=== PATIENT | male | born 1990 | race Caucasian/White ===

== ENCOUNTER 2016-07-18 17:41 | Emergency (ER) | payer MEDICAID ==
[2016-07-18] MEDS ORDERED: SULFAMETH/TRIMETH DS 800/160 MG TABLET PO STA (19:12)
[2016-07-18] MEDS ORDERED: CEPHALEXIN 250 MG CAPSULE PO STA (19:12)
[2016-07-18] MEDS ORDERED: CEPHALEXIN 250 MG CAPSULE PO ONE (19:15)
[2016-07-18] MEDS ORDERED: SULFAMETH/TRIMETH DS 800/160 MG TABLET PO ONE (19:16)
== END 2016-07-18 19:29 | disposition home or self-care (01) ==
DX: L03.811 Cellulitis of head [any part, except face] (principal); F17.200 Nicotine dependence, unspecified, uncomplicated
CPT/HCPCS: 99283; A9270

== ENCOUNTER 2016-10-06 16:07 | Emergency (ER) | payer OTHER, MEDICAID ==
--- NOTE | 2016-10-06 17:42 | XRAY Preliminary Report ---
Exam: XR Toe(s) RT IMPRESSION: 1. No evidence of fracture. 2. Relative diastases at the first interphalangeal joint on lateral view is probably artifact seconda ry to projection. Dislocation from reported mechanism would be atypical. [facility] SITE ID: [id number]
--- NOTE | 2016-10-06 17:44 | XRAY Report ---
EXAM: RIGHT TOE RADIOGRAPHY EXAM DATE: 10/06/2016 05:04 PM. CLINICAL HISTORY: Dropped a heavy pot on them. COMPARISON: None. TECHNIQUE: 3 views. FINDINGS: Bones: No fracture or focal bony lesion. Joints: There is relative diastases of the first interphalangeal joint on lateral view. This is proba henry artifact secondary to projection. Dislocation from reported mechanism would be atypical. Soft Tissues: No unexpected soft tissue findings. IMPRESSION: 1. No evidence of fracture. 2. Relative diastases at the first interphalangeal joint on lateral view is probably artifact seconda ry to projection. Dislocation from reported mechanism would be atypical. [facility] Referring Provider Line: [phone] SITE ID: [id number]
--- NOTE | 2016-10-06 18:08 | ED Physician Documentation ---
PD HPI LOWER EXT INJURY - Stated complaint Stated Complaint: TOE INJ - Chief complaint Chief Complaint: Ext Problem - History obtained from History obtained from: Patient - History of Present Illness PD HPI LOW EXT INJURY LOCATION: Right, Toe Type of injury: Blunt / blow Where injury occurred: Work Timing - onset: Today Timing - duration: Hours Timing - details: Abrupt onset, Still present Improved by: Rest, Immobilization Worsened by: Moving, Palpating Associated symptoms: Discolored. No: Weakness, Numbness, Tingling Contributing factors: No: Anticoagulated Similar symptoms before: Has not had sx before Recently seen: Not recently seen - Additional information Additional information: 26 y/o male dropped a heavy pot on his right foot injuring his toes on the right foot. The pot struck the tips of #1,2 and 3 on the right. He is able to ambulate. Review of Systems Constitutional: denies: Fever Throat: denies: Sore throat Respiratory: denies: Cough GI: denies: Vomiting Musculoskeletal: reports: Extremity pain, Pain with weight bearing. denies: Neck pain, Back pain Neurologic: denies: Generalized weakness, Focal weakness, Numbness PD PAST MEDICAL HISTORY - Past Medical History Cardiovascular: None Respiratory: Sleep apnea Neuro: None Endocrine/Autoimmune: None GI: None : None HEENT: None Psych: Bipolar disorder Musculoskeletal: None Derm: None - Past Surgical History Past Surgical History: Yes HEENT: Myringotomy (tubes) - Present Medications Home Medications: Ambulatory Orders Medication Instructions Recorded Confirmed risperiDONE [RisperDAL] 1 mg PO DAILY 01/08/15 10/06/16 - Allergies Allergies/Adverse Reactions: Allergies Allergy/AdvReac Type Severity Reaction Status Date / Time No Known Drug Allergies Allergy Verified 10/06/16 16:15 - Social History Does the pt smoke?: Yes Smoking Status: Current every day smoker Does the pt drink ETOH?: No Does the pt have substance abuse?: Yes Substance Use and Type: Marijuana - Immunizations Immunizations are current?: Yes - POLST Patient has POLST: No PD ED PE NORMAL - Vitals Vital signs reviewed: Yes (hypertensive) - General General: Alert and oriented X 3, No acute distress, Well developed/nourished - HEENT HEENT: Atraumatic - Respiratory Respiratory: No respiratory distress - Derm Derm: Normal color, Warm and dry, No rash - Extremities Extremities: No deformity, No edema, Other (There is point tenderness and bruising to the tips of the toes on the right foot limited to #1,2 &3) - Neuro Neuro: Alert and oriented X 3, No motor deficit, No sensory deficit, Normal speech - Psych Psych: Normal mood, Normal affect Results - Vitals Vitals: Vital Signs - 24 hr 10/06/16 16:12 Temperature 36.6 C Heart Rate 94 Respiratory 20 Rate Blood Pressure 139/84 H O2 Saturation 98 Oxygen O2 Source Room air - Rads (name of study) toes right. Radiology: Prelim report reviewed, EMP read indepedently, See rad report PD MEDICAL DECISION MAKING - ED course Complexity details: considered differential, d/w patient ED course: Toe contusions on the right foot. The patient is able to ambulate and a metatarsal bar made of cast padding is applied to the patient's slipper. Departure - Departure Disposition: 01 Home, Self Care Clinical Impression: Contusion, toes Qualifiers: Encounter type: initial encounter Toe: great toe Damage to nail status: without damage Laterality: right Qualified Code(s): S90.111A - Contusion of right great toe without damage to nail, initial encounter Condition: Stable Instructions: ED Crush Injury Toe No Fx Follow-Up: Christiano Aranda MD [Primary Care Provider] -
[2016-10-06 18:34] VITALS: BP 136/82
== END 2016-10-06 18:32 | disposition home or self-care (01) ==
LOC: ED 16:07
DX: S90.111A Contusion of right great toe without damage to nail, initial encounter (principal); F17.200 Nicotine dependence, unspecified, uncomplicated
CPT/HCPCS: 1040M; 73660; 99283

== ENCOUNTER 2017-04-05 05:49 | Emergency (ER) | payer MEDICAID ==
--- NOTE | 2017-04-05 06:35 | ED Physician Documentation ---
PD HPI CHEST PAIN - Stated complaint Stated Complaint: CHEST PAIN - Chief complaint Chief Complaint: Cardiac - History obtained from History obtained from: Patient - History of Present Illness Timing - onset: Today Timing - onset during: Rest Timing - details: Abrupt onset, Now resolved Quality: Sharp Location: Left chest Worsened by: No: Exertion, Inspiration Associated symptoms: Diaphoresis, Feeling faint / dizzy. No: Shortness of air, Nausea Similar symptoms before: Has not had sx before Recently seen: Not recently seen - Additional information Additional information: Patient is a 26 year old obese male with no other past medical history who is presenting to the emergency department for chest pain. Patient states that he developed some sharp chest pain this morning, with slight diaphoresis. Patient states that it lasted a few seconds and went away. Upon initial evaluation in the emergency department patient was chest pain free and denied any complaints. patient stated that he just wanted to be sure. Review of Systems Constitutional: denies: Fever, Chills Eyes: denies: Decreased vision, Photophobia Ears: denies: Ear pain, Drainage/discharge Nose: denies: Rhinorrhea / runny nose, Congestion Throat: reports: Reviewed and negative Cardiac: reports: Chest pain / pressure. denies: Palpitations, Pedal edema Respiratory: denies: Dyspnea, Cough, Wheezing GI: reports: Nausea. denies: Vomiting, Constipation, Diarrhea : reports: Reviewed and negative Skin: reports: Reviewed and negative Musculoskeletal: denies: Neck pain, Back pain Neurologic: reports: Reviewed and negative Immunocompromised: denies: Immunocompromised PD PAST MEDICAL HISTORY - Past Medical History Cardiovascular: None Respiratory: Sleep apnea Neuro: None Endocrine/Autoimmune: None GI: None : None HEENT: None Psych: Bipolar disorder Musculoskeletal: None Derm: None - Past Surgical History Past Surgical History: Yes HEENT: Tonsil/Adenoidectomy - Present Medications Home Medications: Ambulatory Orders Medication Instructions Recorded Confirmed risperiDONE [RisperDAL] 1 mg PO DAILY 01/08/15 04/05/17 - Allergies Allergies/Adverse Reactions: Allergies Allergy/AdvReac Type Severity Reaction Status Date / Time No Known Drug Allergies Allergy Verified 10/06/16 16:15 - Social History Does the pt smoke?: Yes Smoking Status: Current every day smoker Does the pt drink ETOH?: No Does the pt have substance abuse?: Yes - Immunizations Immunizations are current?: Yes - POLST Patient has POLST: No PD ED PE NORMAL - Vitals Vital signs reviewed: Yes - General General: Alert and oriented X 3, No acute distress, Well developed/nourished - HEENT HEENT: Atraumatic, PERRL, Moist mucous membranes, Pharynx benign - Neck Neck: Supple, no meningeal sign, No JVD - Cardiac Cardiac: RRR, No murmur, No rub - Respiratory Respiratory: No respiratory distress, Clear bilaterally - Abdomen Abdomen: Soft, Non tender, Non distended - Derm Derm: Normal color, Warm and dry, No rash - Extremities Extremities: No deformity, No edema, No calf tenderness / cord - Neuro Neuro: Alert and oriented X 3, No motor deficit, No sensory deficit, Normal speech - Psych Psych: Normal mood Results - Vitals Vitals: Vital Signs - 24 hr 04/05/17 04/05/17 04/05/17 05:53 07:11 07:13 Temperature 36.8 C 36.5 C Heart Rate 97 83 Respiratory 16 20 Rate Blood Pressure 150/82 H 128/63 O2 Saturation 97 98 Oxygen O2 Source Room air - EKG (time done) 0558 Rate: Rate (enter#) (92) Rhythm: NSR [place]: Normal Intervals: Normal NM QRS: Normal Ischemia: Normal ST segments Compare to prior EKG: Old EKG unavailable - Labs Labs: Laboratory Tests 04/05/17 06:05 Troponin I < 0.04 - Rads (name of study) chest x-ray Radiology: Final report received (no acute abnormality) PD MEDICAL DECISION MAKING - ED course Complexity details: reviewed old records, reviewed results, re-evaluated patient , considered differential, d/w patient ED course: Patient was seen and examined at bedside. EKG was performed and was within normal limits. Patient's diagnostics were all within normal limits. Patient had negative PERC and HEART scores and was appropriate for discharge with outpatient follow up up. Departure - Departure Disposition: 01 Home, Self Care Clinical Impression: Atypical chest pain Condition: Good Instructions: ED Chest Pain NonCardiac Follow-Up: Dylan Lagos PA-C [Primary Care Provider] - Within 3 Days Comments: Your diagnostics today were within normal limits. there are no acute abnormalities indicating that your chest pain is unlikely cardiac in nature. That being said it is important that you follow up with your primary care provider for further evaluation and care. You may return to the emergency department at any time for new, worsening or uncontrollable symptoms. Discharge Date/Time: 04/05/17 07:13
--- NOTE | 2017-04-05 07:02 | XRAY Preliminary Report ---
Exam: XR CHEST 1 VIEW IMPRESSION: Normal single view chest. [facility] SITE ID: [id number]
--- NOTE | 2017-04-05 07:04 | XRAY Report ---
EXAM: CHEST RADIOGRAPHY EXAM DATE: 04/05/2017 06:47 AM. CLINICAL HISTORY: Chest pain. COMPARISON: None. TECHNIQUE: 1 view. FINDINGS: Lungs/Pleura: No focal opacities evident. No pleural effusion. No pneumothorax. Mediastinum: Within exam limitations, the cardiomediastinal contour is normal. Other: None. IMPRESSION: Normal single view chest. [facility] Referring Provider Line: [phone] SITE ID: [id number]
[2017-04-05 07:12] VITALS: BP 128/63
== END 2017-04-05 07:13 | disposition home or self-care (01) ==
LOC: ED 05:49
DX: R07.89 Other chest pain (principal); F17.200 Nicotine dependence, unspecified, uncomplicated
CPT/HCPCS: 36415; 71010; 84484; 93005; 99283

== ENCOUNTER 2017-08-07 08:29 | Emergency (ER) | payer MEDICAID ==
[2017-08-07] MEDS ORDERED: SODIUM CHLORIDE 0.9% 1,000 ML IV ONE (08:41)
[2017-08-07] MEDS ORDERED: HALOPERIDOL 5 MG/ML VIAL IVP STA (08:51)
[2017-08-07] MEDS ORDERED: diphenhydrAMINE INJ 50 MG/ML VIAL IVP STA (08:51)
--- NOTE | 2017-08-07 08:55 | ED Physician Documentation ---
History of Present Illness - Stated complaint Stated Complaint: VOMTING - Chief complaint Chief Complaint: Abd Pain - Additonal information Additional information: hx from pt 27 male hx cannabis hyperemsis stopped smoking THC for 6 m and was doing well started again and now cannot stop vomiting sx for several days abd cramping and intractable vomiting no diarrhea denies travel bad food etc alos states [place] dced his psych meds a m ago but feel unlikely hat withdrawal sx would present at this pt in time Review of Systems Constitutional: denies: Fever, Chills Cardiac: denies: Chest pain / pressure Respiratory: denies: Dyspnea GI: reports: Abdominal Pain, Nausea, Vomiting. denies: Diarrhea Endocrine: denies: Easy bruising / bleeding Immunocompromised: denies: Immunocompromised PD PAST MEDICAL HISTORY - Past Medical History Cardiovascular: None Respiratory: Sleep apnea Neuro: None Endocrine/Autoimmune: None GI: None : None HEENT: None Psych: Bipolar disorder Musculoskeletal: None Derm: None - Past Surgical History Past Surgical History: Yes HEENT: Tonsil/Adenoidectomy - Allergies Allergies/Adverse Reactions: Allergies Allergy/AdvReac Type Severity Reaction Status Date / Time No Known Drug Allergies Allergy Verified 08/07/17 08:36 - Social History Does the pt smoke?: No Smoking Status: Never smoker Does the pt drink ETOH?: Yes Does the pt have substance abuse?: Yes Substance Use and Type: Marijuana - Immunizations Immunizations are current?: Yes - POLST Patient has POLST: No PD ED PE NORMAL - Vitals Vital signs reviewed: Yes - General General: Alert and oriented X 3, Other - Neck Neck: Supple, no meningeal sign - Cardiac Cardiac: RRR - Respiratory Respiratory: No respiratory distress, Clear bilaterally - Abdomen Abdomen: Other (has crampy pain and mild upper abd TTP non focal and no rebound or gaurding) - Derm Derm: Normal color - Neuro Neuro: Alert and oriented X 3 Results - Vitals Vitals: Vital Signs - 24 hr 08/07/17 08/07/17 08:34 12:15 Temperature 36.3 C L 36.7 C Heart Rate 84 87 Respiratory 16 15 Rate Blood Pressure 142/96 H 164/89 H O2 Saturation 95 98 Oxygen O2 Source Room air - Labs Labs: Laboratory Tests 08/07/17 08/07/17 08:53 08:53 WBC 10.8 RBC 5.50 Hgb 15.5 Hct 44.7 MCV 81.3 MCH 28.2 MCHC 34.7 RDW 14.9 Plt Count 314 MPV 7.7 Neut # 6.6 Lymph # 3.4 [place] # 0.8 Eos # 0.0 Baso # 0.0 Absolute Nucleated RBC 0.00 Nucleated RBC % 0.0 Sodium 135 Potassium 3.4 L Chloride 100 L Carbon Dioxide 22 Anion Gap 13.0 BUN 22 H Creatinine 1.3 H Estimated GFR (MDRD) 67 L Glucose 129 H Calcium 9.9 Total Bilirubin 1.7 H AST 35 ALT 43 Alkaline Phosphatase 32 L Total Protein 9.2 H Albumin 5.1 Globulin 4.1 Albumin/Globulin Ratio 1.2 Lipase 12 L - Rads (name of study) RUQ sono Radiology: See rad report (no gallstones - hepatic steatosis) PD MEDICAL DECISION MAKING - ED course ED course: sx resolved with haldol ruq sono 2/2 elev bili ready for dc Departure - Departure Disposition: 01 Home, Self Care Clinical Impression: Cyclic vomiting syndrome Qualifiers: Vomiting Intractability: non-intractable Nausea presence: with nausea Qualified Code(s): G43.A0 - Cyclical vomiting, not intractable Condition: Good Comments: The cyclic vomiting is triggered by marijuana - you have already stopped use which is great - sometimes it takes a month or two for the vomiting cycles to stop. If delarosa have another episode and need to come back to the ER, the medication we gave you in the ER that helped today was called haldol One of your liver tests was slightly elevated so we got an ultrasound - the gallbladder was fine - no gallstones. But the ultrasound showed that you do have some fatty liver changes - this is often due to alcohol consumption so if you drink please cut down. Nothing needs to be done about this finding right now but you should follow up with your PMD and have further monitoring to make sure this does not progress to more severe liver disease such as cirrhosis Rest and drink plenty of fluids for the rest of the day Forms: Activity restrictions
[2017-08-07 09:02] LABS: BASOPHILS % (AUTO) 0.4 %; EOSINOPHILS % (AUTO) 0.3 %; HGB - HEMOGLOBIN 15.5 g/dL (14.0-18.0); LYMPHOCYTES # (AUTO) 3.4 10^3/uL (1.5-3.5); LYMPHOCYTES % (AUTO) 31.2 %; MEAN CORPUSCULAR HEMOGLOBIN 28.2 pg (27.0-31.0); MEAN CORPUSCULAR HGB CONC 34.7 g/dL (32.0-36.0); MEAN CORPUSCULAR VOLUME 81.3 fL (80.0-94.0); MEAN PLATELET VOLUME 7.7 fL (7.4-11.4); MONOCYTES # (AUTO) 0.8 10^3/uL (0.0-1.0); MONOCYTES % (AUTO) 7.3 %; NEUTROPHILS # (AUTO) 6.6 10^3/uL (1.5-6.6); NEUTROPHILS % (AUTO) 60.8 %; PLT - PLATELET COUNT 314 10^3/uL (130-450); RED CELL DISTRIBUTION WIDTH 14.9 % (12.0-15.0); WHITE BLOOD COUNT 10.8 x10^3/uL (4.8-10.8)
[2017-08-07 09:14] LABS: ALBUMIN 5.1 g/dL (3.2-5.5); ALBUMIN/GLOBULIN RATIO 1.2 (1.0-2.2); BILIRUBIN,TOTAL 1.7 mg/dL (0.2-1.0); CALCIUM 9.9 mg/dL (8.5-10.3); CREATININE 1.3 mg/dL (0.6-1.2); TOTAL PROTEIN 9.2 g/dL (6.7-8.2)
--- NOTE | 2017-08-07 11:29 | Ultrasound Report ---
EXAM: ABDOMEN ULTRASOUND LIMITED, RUQ EXAM DATE: 08/07/2017 11:14 AM. CLINICAL HISTORY: Abd pain vomiting elev bili. COMPARISON: 03/27/2014. TECHNIQUE: Real-time scanning was performed with static images obtained. FINDINGS: Liver: Overall increased echogenicity with no discrete mass identified. 23.3 cm. Main portal vein mateus w: Hepatopetal. Gallbladder: No stones, wall thickening, or sonographic De La Torre's sign. Biliary System: CBD measures 4.6 mm. No intrahepatic or extrahepatic ductal dilatation. Other: Right kidney appears unremarkable with no hydronephrosis. Sagittal length 11.4 cm. IMPRESSION: 1. No cholelithiasis or biliary ductal dilation. 2. Overall enlarged and echogenic appearance of the liver, suggesting hepatic steatosis. [facility] Referring Provider Line: [phone] SITE ID: [id number]
[2017-08-07 12:16] VITALS: BP 164/89
== END 2017-08-07 12:28 | disposition home or self-care (01) ==
LOC: ED 08:29
DX: G43.A0 Cyclical vomiting, in migraine, not intractable (principal)
CPT/HCPCS: 36415; 76705; 80053; 83690; 85025; 96361; 96374; 96375; 99283; 99284; J1200

== ENCOUNTER 2017-10-27 19:13 | Emergency (ER) | payer MEDICAID | END 2017-10-27 19:32 | disposition left against medical advice (07) | LOC: ED 19:13 | DX: Z53.21 Procedure and treatment not carried out due to patient leaving prior to being seen by health care provider (principal) ==

== ENCOUNTER 2017-11-15 09:20 | Emergency (ER) | payer MEDICAID ==
[2017-11-15] MEDS ORDERED: SODIUM CHLORIDE 0.9% 1,000 ML IV ONE ×2 (09:54→11:17)
[2017-11-15 10:01] LABS: BASOPHILS % (AUTO) 0.1 %; EOSINOPHILS % (AUTO) 0.1 %; HGB - HEMOGLOBIN 15.9 g/dL (14.0-18.0); LYMPHOCYTES # (AUTO) 3.1 10^3/uL (1.5-3.5); LYMPHOCYTES % (AUTO) 23.9 %; MEAN CORPUSCULAR HEMOGLOBIN 28.5 pg (27.0-31.0); MEAN CORPUSCULAR HGB CONC 33.4 g/dL (32.0-36.0); MEAN CORPUSCULAR VOLUME 85.2 fL (80.0-94.0); MEAN PLATELET VOLUME 8.1 fL (7.4-11.4); MONOCYTES # (AUTO) 0.9 10^3/uL (0.0-1.0); NEUTROPHILS % (AUTO) 68.9 %; PLT - PLATELET COUNT 325 10^3/uL (130-450); RED BLOOD COUNT 5.57 10^6/uL (4.70-6.10); RED CELL DISTRIBUTION WIDTH 14.3 % (12.0-15.0); WHITE BLOOD COUNT 13.1 x10^3/uL (4.8-10.8)
[2017-11-15 10:34] LABS: ALBUMIN 5.4 g/dL (3.2-5.5); ALBUMIN/GLOBULIN RATIO 1.2 (1.0-2.2); BILIRUBIN,TOTAL 2.1 mg/dL (0.2-1.0); CALCIUM 10.7 mg/dL (8.5-10.3); CREATININE 1.8 mg/dL (0.6-1.2); TOTAL PROTEIN 9.9 g/dL (6.7-8.2)
[2017-11-15] MEDS ORDERED: KETOROLAC 60 MG/2 ML VIAL IVP STA (11:14)
--- NOTE | 2017-11-15 11:14 | ED Physician Documentation ---
History of Present Illness - Stated complaint Stated Complaint: ABD PX - Chief complaint Chief Complaint: Abd Pain - Additonal information Additional information: 27 male has NV few days ago due to marijuana use hx of same that is better but since that time he has had severe mm cramps no NVD now otherwise well Review of Systems Constitutional: reports: Myalgias. denies: Fever, Chills Cardiac: denies: Chest pain / pressure Respiratory: denies: Dyspnea GI: reports: Abdominal Pain, Nausea, Vomiting Endocrine: denies: Easy bruising / bleeding Immunocompromised: denies: Immunocompromised PD PAST MEDICAL HISTORY - Past Medical History Cardiovascular: None Respiratory: Sleep apnea Endocrine/Autoimmune: None GI: None : None HEENT: None Psych: Bipolar disorder Musculoskeletal: None Derm: None - Past Surgical History Past Surgical History: Yes HEENT: Tonsil/Adenoidectomy - Allergies Allergies/Adverse Reactions: Allergies Allergy/AdvReac Type Severity Reaction Status Date / Time No Known Drug Allergies Allergy Verified 08/07/17 08:36 - Social History Does the pt smoke?: No Smoking Status: Never smoker Does the pt drink ETOH?: Yes Does the pt have substance abuse?: Yes - Immunizations Immunizations are current?: Yes - POLST Patient has POLST: No PD ED PE NORMAL - Vitals Vital signs reviewed: Yes - Cardiac Cardiac: RRR - Respiratory Respiratory: No respiratory distress - Abdomen Abdomen: Soft, Other (mod lower abd TTP s rebound or gaurding) - Derm Derm: Normal color - Neuro Neuro: Alert and oriented X 3 Results - Vitals Vitals: Vital Signs - 24 hr 11/15/17 11/15/17 09:33 13:18 Temperature 36 C L Heart Rate 95 86 Respiratory 18 12 Rate Blood Pressure 129/98 H 185/113 H O2 Saturation 96 99 Oxygen O2 Source Room air - Labs Labs: Laboratory Tests 11/15/17 11/15/17 09:50 09:50 WBC 13.1 H RBC 5.57 Hgb 15.9 Hct 47.5 MCV 85.2 MCH 28.5 MCHC 33.4 RDW 14.3 Plt Count 325 MPV 8.1 Neut # (Auto) 9.0 H Lymph # (Auto) 3.1 [place] # (Auto) 0.9 Eos # (Auto) 0.0 Baso # (Auto) 0.0 Absolute Nucleated RBC 0.01 Nucleated RBC % 0.1 Sodium 134 L Potassium 4.0 Chloride 95 L Carbon Dioxide 23 Anion Gap 16.0 H BUN 25 H Creatinine 1.8 H Estimated GFR (MDRD) 46 L Glucose 129 H Calcium 10.7 H Total Bilirubin 2.1 H AST 28 ALT 27 Alkaline Phosphatase 38 L Total Protein 9.9 H Albumin 5.4 Globulin 4.5 H Albumin/Globulin Ratio 1.2 Lipase 21 L PD MEDICAL DECISION MAKING - ED course ED course: labs abn so got sono - nl GB and nl kidneys s hydro pt feeling much much better after IVF and ofirmev all sx resolved will dc to drink plenty PO fluids and emphasized need to rpt labs with PMD later this week pt received MSE indicates sig liver and renal dysfxn and elev calcium pt is feeling better given IVF will need close follow up no imminent life limb threatening issue requiring admit surgery etc identified and feel pt stable and safe to dc home with close outpt fup - Sepsis Event Vital Signs: Vital Signs - 24 hr 11/15/17 11/15/17 09:33 13:18 Temperature 36 C L Heart Rate 95 86 Respiratory 18 12 Rate Blood Pressure 129/98 H 185/113 H O2 Saturation 96 99 Oxygen O2 Source Room air Departure - Departure Disposition: 01 Home, Self Care Clinical Impression: Renal insufficiency, Abnormal liver enzymes Vomiting Qualifiers: Vomiting type: unspecified Vomiting Intractability: non-intractable Nausea presence: without nausea Qualified Code(s): R11.11 - Vomiting without nausea Instructions: ED Dehydration Follow-Up: Dylan Lagos PA-C [Primary Care Provider] - (this week ! ) Comments: Since you are feeling better, I think it is safe for you to go home But it is very very important that you follow up with your PMD later this week to recheck your labs - your kidney function was low and one of your liver tests and your calcium level were high The ultrasound did not show any kidney or gallbladder abnormalities Drink plenty of fluids And call to make an ER follow up appointment and lab recheck later this week - you also need to get your blood pressure rechecked - it was high
[2017-11-15] MEDS ORDERED: DICYCLOMINE 10 MG CAPSULE PO STA (11:15)
[2017-11-15] MEDS ORDERED: ACETAMINOPHEN 1,000 MG/100 ML 100 ML IV STA (11:16)
--- NOTE | 2017-11-15 12:40 | Ultrasound Report ---
Procedure Date: 11/15/2017 Accession Number: [id number] / [id number] Procedure: US - Abdomen Complete CPT Code: FULL RESULT: EXAM: Abdomen Complete DATE: 11/15/2017 12:15 PM CLINICAL HISTORY: abd pain NV elev bili and creat COMPARISON: 08/07/2017. TECHNIQUE: Real-time scanning was performed with static images obtained. FINDINGS: Liver: Increased echogenicity and coarse echotexture in keeping with parenchymal disease such as steatosis. Regional hypoechoic 3.4 x 1.6 x 2.6 cm area centrally may represent focal fatty sparing. The liver spans at least 23 cm, measurement limited by field of view. Main portal vein flow: Hepatopetal. Gallbladder: Normal. No stones, wall thickening, or sonographic De La Torre's sign. Biliary System: Common bile duct measures 7 mm, greater than expected in a patient this age. While no intrahepatic ductal dilatation is identified, the echogenic parenchyma limits evaluation for this finding. Pancreas: Visualized portion is unremarkable. Kidneys: Right: 11.3 cm longitudinally. Normal. No contour-deforming mass, stones, or hydronephrosis. Left: 11.2 cm longitudinally. Normal. No contour-deforming mass, stones, or hydronephrosis. Spleen: 12.7 cm. Top normal in size, unremarkable in appearance. Aorta and Inferior Vena Cava: Unremarkable. IMPRESSION: Greater than expected caliber common bile duct without sonographic findings to suggest acute cholecystitis. [facility]
--- NOTE | 2017-11-15 12:41 | Ultrasound Report ---
Procedure Date: 11/15/2017 Accession Number: [id number] / [id number] Procedure: US - Bladder CPT Code: FULL RESULT: EXAM: Bladder DATE: 11/15/2017 12:30 PM CLINICAL HISTORY: acute elev creat and lower abd pain TECHNIQUE: Grayscale and limited color Doppler images of the bladder were obtained. COMPARISON: None FINDINGS: The bladder measures 5.5 x 4.1 x 4.7 cm for a total volume of 55 mL. Therefore, postvoid images were not obtained. Bilateral ureteral jets are identified. IMPRESSION: Normal bladder, no urinary retention.
[2017-11-15 13:19] VITALS: BP 185/113
== END 2017-11-15 14:00 | disposition home or self-care (01) ==
LOC: ED 09:20
DX: N28.9 Disorder of kidney and ureter, unspecified (principal); R74.8 Abnormal levels of other serum enzymes; R79.0 Abnormal level of blood mineral; R11.11 Vomiting without nausea; R03.0 Elevated blood-pressure reading, without diagnosis of hypertension
CPT/HCPCS: 36415; 76700; 76857; 80053; 83690; 85025; 96361; 96365; 99283; A9270; J0131

== ENCOUNTER 2017-11-23 20:23 | Outpatient (CLI) | payer MEDICAID ==
[2017-11-23 19:11] LABS: BASOPHILS % (AUTO) 0.7 %; EOSINOPHILS # (AUTO) 0.1 10^3/uL (0.0-0.7); EOSINOPHILS % (AUTO) 2.3 %; HGB - HEMOGLOBIN 13.4 g/dL (14.0-18.0); LYMPHOCYTES # (AUTO) 2.6 10^3/uL (1.5-3.5); LYMPHOCYTES % (AUTO) 41.6 %; MEAN CORPUSCULAR HEMOGLOBIN 29.3 pg (27.0-31.0); MEAN CORPUSCULAR VOLUME 86.1 fL (80.0-94.0); MEAN PLATELET VOLUME 8.5 fL (7.4-11.4); MONOCYTES # (AUTO) 0.4 10^3/uL (0.0-1.0); MONOCYTES % (AUTO) 7.1 %; NEUTROPHILS % (AUTO) 48.3 %; PLT - PLATELET COUNT 229 10^3/uL (130-450); RED BLOOD COUNT 4.59 10^6/uL (4.70-6.10); WHITE BLOOD COUNT 6.3 x10^3/uL (4.8-10.8)
[2017-11-23 19:16] LABS: ALBUMIN/GLOBULIN RATIO 1.2 (1.0-2.2); BILIRUBIN,TOTAL 0.7 mg/dL (0.2-1.0); CALCIUM 9.3 mg/dL (8.5-10.3); CREATININE 0.8 mg/dL (0.6-1.2); TOTAL PROTEIN 7.3 g/dL (6.7-8.2)
== END 2017-11-23 20:24 | disposition home or self-care (01) ==
LOC: LAB.N 20:23
PROVIDERS: ATTEND Physician Assistant Medical
DX: R89.9 Unspecified abnormal finding in specimens from other organs, systems and tissues (principal); R10.9 Unspecified abdominal pain
CPT/HCPCS: 36415; 80053; 83690; 85025

== ENCOUNTER 2017-12-15 10:36 | Outpatient (CLI) | payer MEDICAID | END 2017-12-15 10:37 | disposition home or self-care (01) | LOC: SC 10:36 | PROVIDERS: ATTEND Nurse Practitioner Family | DX: G47.33 Obstructive sleep apnea (adult) (pediatric) (principal) | CPT/HCPCS: 99212; 99214 ==

== ENCOUNTER 2018-03-09 07:14 | Emergency (ER) | payer SELFPAY ==
[2018-03-09] MEDS ORDERED: SODIUM CHLORIDE 0.9% 1,000 ML IV ONE (07:52)
[2018-03-09] MEDS ORDERED: PROMETHAZINE INJ 25 MG in SODIUM CHLORIDE 0.9% 50 ML IV STA (07:52)
[2018-03-09 08:06] LABS: BASOPHILS % (AUTO) 0.2 %; EOSINOPHILS # (AUTO) 0.1 10^3/uL (0.0-0.7); EOSINOPHILS % (AUTO) 0.8 %; HGB - HEMOGLOBIN 15.4 g/dL (14.0-18.0); LYMPHOCYTES # (AUTO) 3.7 10^3/uL (1.5-3.5); LYMPHOCYTES % (AUTO) 34.7 %; MEAN CORPUSCULAR HEMOGLOBIN 29.1 pg (27.0-31.0); MEAN CORPUSCULAR HGB CONC 34.2 g/dL (32.0-36.0); MEAN CORPUSCULAR VOLUME 84.9 fL (80.0-94.0); MEAN PLATELET VOLUME 7.7 fL (7.4-11.4); MONOCYTES # (AUTO) 0.6 10^3/uL (0.0-1.0); MONOCYTES % (AUTO) 5.6 %; NEUTROPHILS # (AUTO) 6.2 10^3/uL (1.5-6.6); NEUTROPHILS % (AUTO) 58.7 %; PLT - PLATELET COUNT 295 10^3/uL (130-450); RED BLOOD COUNT 5.31 10^6/uL (4.70-6.10); RED CELL DISTRIBUTION WIDTH 14.1 % (12.0-15.0); WHITE BLOOD COUNT 10.6 x10^3/uL (4.8-10.8)
[2018-03-09 08:20] LABS: ALBUMIN 4.9 g/dL (3.2-5.5); ALBUMIN/GLOBULIN RATIO 1.2 (1.0-2.2); BILIRUBIN,TOTAL 1.6 mg/dL (0.2-1.0); CREATININE 1.2 mg/dL (0.6-1.2); TOTAL PROTEIN 9.1 g/dL (6.7-8.2)
--- NOTE | 2018-03-09 08:27 | ED Physician Documentation ---
History of Present Illness - Stated complaint Stated Complaint: FLU SYMPTOMS - Chief complaint Chief Complaint: Abd Pain - Additonal information Additional information: hx from pt 27 y/o male hx cannaboid hyperemesis but this is different (has diarrhea) NVD for about 4 days no bad food no travel no sick contacts no recent antibiotics thinks he has a stomach flu 2 days ago he vomited a large amt of blood, since then occ small amt of blood in vomit as well no bloody black BM no CP or AP or BP Review of Systems Constitutional: denies: Fever, Chills Cardiac: denies: Chest pain / pressure Respiratory: denies: Dyspnea GI: reports: Nausea, Vomiting, Diarrhea, Hematemesis. denies: Abdominal Pain, Bloody / black stool Neurologic: denies: Generalized weakness Endocrine: denies: Easy bruising / bleeding Immunocompromised: denies: Immunocompromised PD PAST MEDICAL HISTORY - Past Medical History Cardiovascular: None Respiratory: Sleep apnea Endocrine/Autoimmune: None GI: None : None HEENT: None Psych: Bipolar disorder Musculoskeletal: None Derm: None - Past Surgical History Past Surgical History: Yes HEENT: Tonsil/Adenoidectomy - Present Medications Home Medications: Ambulatory Orders Medication Instructions Recorded Confirmed Ondansetron Odt [Zofran] 4 mg TL Q6H PRN #10 tablet 03/09/18 Sucralfate [Carafate] 1 gm PO ACHS #120 tablet 03/09/18 raNITIdine [Zantac] 150 mg PO BID #60 tablet 03/09/18 - Allergies Allergies/Adverse Reactions: Allergies Allergy/AdvReac Type Severity Reaction Status Date / Time No Known Drug Allergies Allergy Verified 03/09/18 07:23 - Social History Does the pt smoke?: No Smoking Status: Never smoker Does the pt drink ETOH?: Yes Does the pt have substance abuse?: Yes - Immunizations Immunizations are current?: Yes - POLST Patient has POLST: No PD ED PE NORMAL - Vitals Vital signs reviewed: Yes - General General: Alert and oriented X 3 - HEENT HEENT: PERRL - Neck Neck: Supple, no meningeal sign - Cardiac Cardiac: RRR - Respiratory Respiratory: No respiratory distress, Clear bilaterally - Abdomen Abdomen: Soft, Non tender - Neuro Neuro: Alert and oriented X 3 Results - Vitals Vitals: Vital Signs - 24 hr 03/09/18 07:20 Temperature 35.7 C L Heart Rate 78 Respiratory 20 Rate Blood Pressure 153/106 H O2 Saturation 96 Oxygen O2 Source Room air - Labs Labs: Laboratory Tests 03/09/18 03/09/18 08:00 08:00 WBC 10.6 RBC 5.31 Hgb 15.4 Hct 45.1 MCV 84.9 MCH 29.1 MCHC 34.2 RDW 14.1 Plt Count 295 MPV 7.7 Neut # (Auto) 6.2 Lymph # (Auto) 3.7 H [place] # (Auto) 0.6 Eos # (Auto) 0.1 Baso # (Auto) 0.0 Absolute Nucleated RBC 0.01 Nucleated RBC % 0.1 Sodium 136 Potassium 3.9 Chloride 100 L Carbon Dioxide 25 Anion Gap 11.0 BUN 24 H Creatinine 1.2 Estimated GFR (MDRD) 74 L Glucose 123 H Calcium 10.0 Total Bilirubin 1.6 H AST 26 ALT 32 Alkaline Phosphatase 32 L Total Protein 9.1 H Albumin 4.9 Globulin 4.2 Albumin/Globulin Ratio 1.2 Lipase 27 PD MEDICAL DECISION MAKING - ED course ED course: vomit is mostly clear greenish but is trace occult blood + pt felt much better with phenergan and pepcid tolerated PO H/H stable VS stable will dc with H2B carafate zofran and referral to surg for EGD Departure - Departure Disposition: ED Transfer to [facility] Clinical Impression: Gastroenteritis Gastritis Qualifiers: Gastritis type: unspecified gastritis Chronicity: acute Gastritis bleeding: with bleeding Qualified Code(s): K29.01 - Acute gastritis with bleeding Condition: Good Instructions: ED Gastroenteritis Non Infec, ED PUD Vs Gastritis Follow-Up: Dylan Lagos PA-C [Primary Care Provider] - Juan C Brito MD [Provider Admit Priv/Credential] - Prescriptions: Ondansetron Odt [Zofran] 4 mg TL Q6H PRN #10 tablet PRN Reason: Nausea / Vomiting raNITIdine [Zantac] 150 mg PO BID #60 tablet Sucralfate [Carafate] 1 gm PO ACHS #120 tablet Comments: Your labs look fine - you have not lost a significant amount of blood and your liver and kidney tests are improved from when i saw you last summer. You are feeling better after the medications so I think it is safe for you to go home I prescribed zofran to ease the vomiting And zantac and carafate to help stp the stomach bleeding Please Follow up with your PMD for a recheck this week. And please call the surgery office to schedule a scope of your stomach to further evaluate the bleeding Of course return to the ER if worse - especially if there is more blood in vomit or poop or if you develop severe pain And please get your blood pressure rechecked - it was high today Forms: Activity restrictions
[2018-03-09] MEDS ORDERED: FAMOTIDINE 20 MG/50 ML 50 ML IV ONE (08:45)
[2018-03-09 09:18] VITALS: BP 185/114
== END 2018-03-09 09:29 | disposition home or self-care (01) ==
LOC: ED 07:14
DX: K52.9 Noninfective gastroenteritis and colitis, unspecified (principal); K29.01 Acute gastritis with bleeding; R03.0 Elevated blood-pressure reading, without diagnosis of hypertension
CPT/HCPCS: 36415; 80053; 83690; 85025; 96365; 96367; 99283; J7040

== ENCOUNTER 2018-08-25 00:35 | Emergency (ER) | payer MEDICAID ==
--- NOTE | 2018-08-25 01:12 | ED Physician Documentation ---
PD HPI MHE - Stated complaint Stated Complaint: MHE - Chief complaint Chief Complaint: MHE - History obtained from History obtained from: Patient, Family - History of Present Illness Primary symptom: Anxiety Pain level now: 0 Contributing factors: Family, Sig other Recently seen: Not recently seen - Additional information Additional information: Patient brought to ED by parents at patient's request. He had an argument with his s.o. tonight and expresses desire to leave his s.o. but is worried about custody issues with the two children they have together as well as losing contact with s.o.'s daughter (from another relationship) to whom the patient feels deep attachment. He requests mental health evaluation. Review of Systems Cardiac: reports: Reviewed and negative Respiratory: reports: Reviewed and negative GI: reports: Reviewed and negative Psychiatric: reports: Anxiety. denies: Suicidal, Homicidal, Hallucinations, Delusions PD PAST MEDICAL HISTORY - Past Medical History Cardiovascular: None Respiratory: None, Sleep apnea Neuro: None Endocrine/Autoimmune: None GI: None : None HEENT: None Psych: Depression, Anxiety, Bipolar disorder Musculoskeletal: None Derm: None - Past Surgical History Past Surgical History: Yes HEENT: Tonsil/Adenoidectomy - Present Medications Home Medications: Ambulatory Orders Medication Instructions Recorded Confirmed Ondansetron Odt [Zofran] 4 mg TL Q6H PRN #10 tablet 03/09/18 Sucralfate [Carafate] 1 gm PO ACHS #120 tablet 03/09/18 raNITIdine [Zantac] 150 mg PO BID #60 tablet 03/09/18 - Allergies Allergies/Adverse Reactions: Allergies Allergy/AdvReac Type Severity Reaction Status Date / Time No Known Drug Allergies Allergy Verified 03/09/18 07:23 - Social History Does the pt smoke?: No Smoking Status: Never smoker Does the pt drink ETOH?: Yes Does the pt have substance abuse?: Yes Substance Use and Type: Marijuana - Immunizations Immunizations are current?: Yes - POLST Patient has POLST: No PD ED PE NORMAL - Vitals Vital signs reviewed: Yes - General General: Alert and oriented X 3, No acute distress, Well developed/nourished - HEENT HEENT: PERRL, EOMI - Cardiac Cardiac: No murmur - Respiratory Respiratory: No respiratory distress, Clear bilaterally - Abdomen Abdomen: Soft, Non tender - Neuro Neuro: Alert and oriented X 3, journalism internship 2-12 intact, No motor deficit, No sensory deficit, Normal speech PD ED PE EXPANDED - Cardiac Cardiac: Tachy, Regular Rhythm - Psych Psych: Pressured speech (mild) Results - Vitals Vitals: Oxygen O2 Source Room air - Labs Labs: Laboratory Tests 08/25/18 08/25/18 08/25/18 01:40 01:45 01:45 WBC 8.6 RBC 4.95 Hgb 14.2 Hct 42.5 MCV 85.9 MCH 28.7 MCHC 33.4 RDW 14.1 Plt Count 247 MPV 8.1 Neut # (Auto) 5.4 Lymph # (Auto) 2.4 [place] # (Auto) 0.8 Eos # (Auto) 0.1 Baso # (Auto) 0.0 Absolute Nucleated RBC 0.01 Nucleated RBC % 0.1 Sodium 135 Potassium 3.4 L Chloride 98 L Carbon Dioxide 24 Anion Gap 13.0 BUN 13 Creatinine 1.2 Estimated GFR (MDRD) 73 L Glucose 127 H Calcium 9.3 Urine Color DARK YELLOW Urine Clarity CLEAR Urine pH 5.5 Ur Specific [place] 1.025 Urine Protein TRACE Urine Glucose (UA) NEGATIVE Urine Ketones TRACE Urine Occult Blood NEGATIVE Urine Nitrite NEGATIVE Urine Bilirubin NEGATIVE Urine Urobilinogen 0.2 (NORMAL) Ur Leukocyte Esterase NEGATIVE Ur Microscopic Review NOT INDICATED Urine Culture Comments NOT INDICATED Urine Opiates Screen NEGATIVE Ur Oxycodone Screen NEGATIVE Urine Methadone Screen NEGATIVE Ur Propoxyphene Screen NEGATIVE Ur Barbiturates Screen NEGATIVE Ur Tricyclics Screen NEGATIVE Ur Phencyclidine Scrn NEGATIVE Ur Amphetamine Screen NEGATIVE U Methamphetamines Scrn NEGATIVE U Benzodiazepines Scrn NEGATIVE Urine Cocaine Screen NEGATIVE U Cannabinoids Screen POSITIVE H Ethyl Alcohol < 5.0 PD MEDICAL DECISION MAKING - ED course Complexity details: reviewed old records, reviewed results, re-evaluated patient, considered differential, d/w patient, d/w family ED course: Patient requests mental health evaluation. He says he wants this to demonstrate to others that he is mentally sound. He also acknowledges that he has a h/o ED visit that resulted in MHE and transfer to inpatient psychiatric facility, but he says this was several years ago and was a result of illicit substance use. He has been on psychiatric medications in the past but he says his prescribing physician told him he no longer needed to take them (few years ago). Parents note patient has been having difficulty sleeping and has pressured speech. They do not, however, have concerns that he is a danger to self or others. While awaiting telepsych consult, patient had d/w his family and patient now declines further evaluation and wants to go home. He is here voluntarily and hasnt provided any information that indicate he is a danger to himself or others. Will discharge from ED as he requests. He is encouraged to return to ED at any time he wants to be reevaluated, and he and his family indicate he will seek outpatient follow-up Departure - Departure Disposition: 01 Home, Self Care Clinical Impression: Anxiety Condition: Good Instructions: ED Stress React, ED Hypertension Poss Comments: Follow up with your primary care provider. Please return to the emergency department at any time you wish to be reevaluated. Discharge Date/Time: 08/25/18 03:24
[2018-08-25 01:52] LABS: MUDS CUTOFF CONCENTRATIONS CUTOFF CONC BELOW:
[2018-08-25 01:54] LABS: BASOPHILS % (AUTO) 0.6 %; EOSINOPHILS # (AUTO) 0.1 10^3/uL (0.0-0.7); HGB - HEMOGLOBIN 14.2 g/dL (14.0-18.0); LYMPHOCYTES # (AUTO) 2.4 10^3/uL (1.5-3.5); LYMPHOCYTES % (AUTO) 27.3 %; MEAN CORPUSCULAR HEMOGLOBIN 28.7 pg (27.0-31.0); MEAN CORPUSCULAR HGB CONC 33.4 g/dL (32.0-36.0); MEAN CORPUSCULAR VOLUME 85.9 fL (80.0-94.0); MEAN PLATELET VOLUME 8.1 fL (7.4-11.4); MONOCYTES # (AUTO) 0.8 10^3/uL (0.0-1.0); MONOCYTES % (AUTO) 8.7 %; NEUTROPHILS # (AUTO) 5.4 10^3/uL (1.5-6.6); NEUTROPHILS % (AUTO) 62.4 %; PLT - PLATELET COUNT 247 10^3/uL (130-450); RED BLOOD COUNT 4.95 10^6/uL (4.70-6.10); RED CELL DISTRIBUTION WIDTH 14.1 % (12.0-15.0); WHITE BLOOD COUNT 8.6 x10^3/uL (4.8-10.8)
[2018-08-25 01:57] LABS: GLUCOSE, URINE (UA) NEGATIVE (NEGATIVE); KETONES,URINE (UA) TRACE mg/dL (NEGATIVE); LEUKOCYTE ESTERASE, URINE NEGATIVE (NEGATIVE); NITRITE,URINE NEGATIVE (NEGATIVE); OCCULT BLOOD,URINE NEGATIVE (NEGATIVE); PH,URINE 5.5 PH (5.0-7.5); PROTEIN,URINE TRACE mg/dL (NEGATIVE); UROBILINOGEN,URINE 0.2 (NORMAL) E.U./dL (NORMAL)
[2018-08-25 02:01] LABS: CLARITY,URINE CLEAR (CLEAR)
[2018-08-25 02:02] LABS: BILIRUBIN,URINE NEGATIVE (NEGATIVE); ICTOTEST,URINE NEGATIVE
[2018-08-25 02:03] LABS: BUN - BLOOD UREA NITROGEN 13 mg/dL (6-20); CALCIUM 9.3 mg/dL (8.5-10.3); CARBON DIOXIDE - CO2 24 mmol/L (21-32); CHLORIDE 98 mmol/L (101-111); CREATININE 1.2 mg/dL (0.6-1.2); GFR - MDRD 73 (>89); GLUCOSE 127 mg/dL (70-100); SODIUM 135 mmol/L (135-145)
[2018-08-25 02:10] LABS: AMPHETAMINE SCREEN,URINE NEGATIVE (NEGATIVE); BENZODIAZEPINES SCREEN, URINE NEGATIVE (NEGATIVE); COCAINE SCREEN URINE NEGATIVE (NEGATIVE); METHADONE SCREEN, URINE NEGATIVE (NEGATIVE); METHAMPHETAMINES SCREEN, URINE NEGATIVE (NEGATIVE); OPIATE SCREEN, URINE NEGATIVE (NEGATIVE); OXYCODONE SCREEN, URINE NEGATIVE (NEGATIVE); PROPOXYPHENE SCREEN, URINE NEGATIVE (NEGATIVE); TRICYCLIC ANTIDEPRESSANT,URINE NEGATIVE (NEGATIVE)
[2018-08-25 03:22] VITALS: BP 164/91
== END 2018-08-25 03:24 | disposition home or self-care (01) ==
LOC: ED 00:35
DX: F41.9 Anxiety disorder, unspecified (principal); G47.9 Sleep disorder, unspecified; F31.9 Bipolar disorder, unspecified
CPT/HCPCS: 36415; 80048; 80306; 80320; 81001; 81003; 85025; 87086; 99283

== ENCOUNTER 2018-08-29 09:57 | Emergency (ER) | payer MEDICAID ==
[2018-08-29] MEDS ORDERED: OLANZapine 10 MG VIAL IM STA ×4 (09:59→18:49)
[2018-08-29] MEDS ORDERED: MIDAZOLAM 2 MG/2 ML VIAL IM STA (09:59)
--- NOTE | 2018-08-29 10:05 | ED Physician Documentation ---
<Juan C James - Last Filed: 08/30/18 14:36> PD HPI MHE - Stated complaint Stated Complaint: MHE PD PAST MEDICAL HISTORY - Present Medications Home Medications: Ambulatory Orders Medication Instructions Recorded Confirmed Home Medications Unobtainable 08/29/18 08/29/18 [HOME MEDICATIONS UNOBTAINABLE] - Allergies Allergies/Adverse Reactions: Allergies Allergy/AdvReac Type Severity Reaction Status Date / Time No Known Drug Allergies Allergy Verified 08/29/18 10:11 PD MEDICAL DECISION MAKING - ED course ED course: 28-year-old male with a history of acute psychoses with apparent nichole is difficult to control in the emergency department last night secondary to aggressive manic behavior. He requires restraint in the emergency department and multiple doses of sedative medications including Haldol Ativan and Zyprexa. Despite use of these medications the patient continued to escalate his behavior and a dose of 300 mg of ketamine was given at approximately 1:30 in the morning. The patient was able to sleep following that. Telepsych was consulted in the cases and Dr. Gray recommends a "super nichole" dose of zyprexa 15mg bid. The [facility] is re-dispatched this morning to search for beds. The patient became agitated on awakening and was administered zyprexa 15mg PO. He continued agitation and a 3rd dose of ketamine is administered. On awakening from this he is less agitated. He is gravely disabled by his manic and psychotic behavior and he is a threat to others as well as himself. He is involuntarily detained and he is accepted for care by [facility]. Departure - Departure Disposition: 65 Psych Hosp/Unit DC/Xfer Clinical Impression: Bipolar disorder with severe nichole Psychosis Qualifiers: Psychosis type: schizoaffective disorder Schizoaffective disorder type: bipolar Qualified Code(s): F25.0 - Schizoaffective disorder, bipolar type Condition: Fair Comments: We will culture your urine, the results should be done in 48-72 hours. If an antibiotic is necessary we will call you. Return if worse in the meantime, especially if you develop increasing flank pain, or fevers. Discharge Date/Time: 08/30/18 16:28 <Esteban Gutierres - Last Filed: 08/30/18 17:24> PD HPI MHE - History obtained from History obtained from: Police - History of Present Illness Primary symptom: Aggressive behavior (28-year-old gentleman with history of psychiatric issues is brought in being held down and restrained by multiple police officers for mental health evaluation. He is a rambling and pretty useless historian and has been aggressive with police. Reportedly from deputies, he is been escalating recently, threatening Violence against his parents and threatening suicide. He was running around naked outside of his apartment.) Review of Systems Unable to obtain: Uncooperative PD PAST MEDICAL HISTORY - Past Medical History Cardiovascular: None Respiratory: None, Sleep apnea Neuro: None Endocrine/Autoimmune: None GI: None : None HEENT: None Psych: Depression, Anxiety, Bipolar disorder Musculoskeletal: None Derm: None - Past Surgical History Past Surgical History: Yes HEENT: Tonsil/Adenoidectomy - Social History Does the pt smoke?: No Smoking Status: Never smoker Does the pt drink ETOH?: Yes Does the pt have substance abuse?: Yes - Immunizations Immunizations are current?: Yes - POLST Patient has POLST: No PD ED PE NORMAL - Vitals Vital signs reviewed: Yes - General General: Other (He is alert and oriented to person, is a rambling historian and pretty useless for the reasons for being here or insight. He is belligerent and swearing a lot. He is being held down and restrained by [employer] deputies.) - HEENT HEENT: PERRL, EOMI - Neck Neck: Supple, no meningeal sign, No bony TTP - Cardiac Cardiac: RRR, No murmur - Respiratory Respiratory: No respiratory distress, Clear bilaterally - Abdomen Abdomen: Normal bowel sounds, Soft, Non tender - Back Back: No CVA TTP, No spinal TTP - Derm Derm: Normal color, Warm and dry - Extremities Extremities: No edema, No calf tenderness / cord - Neuro Neuro: corporate compliance manager 2-12 intact Eye Opening: Spontaneous Motor: Obeys Commands Results - Vitals Vitals: Vital Signs - 24 hr 08/29/18 08/29/18 08/30/18 21:34 21:44 02:22 Temperature 36.1 C L 36.4 C L Heart Rate 104 H 86 105 H Respiratory 16 20 Rate Blood Pressure 132/88 H 158/94 H O2 Saturation 98 98 05/01/19 05/01/19 05/01/19 06:31 10:55 13:02 Temperature 37 C Heart Rate 95 111 H 107 H Respiratory 22 20 20 Rate Blood Pressure 187/106 H 149/92 H O2 Saturation 100 97 98 08/30/18 15:43 Temperature 36.5 C Heart Rate 115 H Respiratory 20 Rate Blood Pressure 132/112 H O2 Saturation 98 Oxygen O2 Source Room air - EKG (time done) 1644 Rate: Rate (enter#) (85) Rhythm: NSR [place]: Normal Intervals: Normal MA QRS: Normal Ischemia: Normal ST segments Computer interpretation: Agree with computer - Labs Labs: Microbiology 08/29/18 10:37 Urine Culture - Final Urine,Catheterized NO AEROBIC GROWTH AT 24 HOURS Laboratory Tests 08/29/18 08/29/18 08/29/18 10:05 10:05 10:05 WBC 8.6 RBC 5.05 Hgb 14.6 Hct 43.0 MCV 85.1 MCH 28.8 MCHC 33.9 RDW 14.4 Plt Count 233 MPV 8.4 Neut # (Auto) 5.3 Lymph # (Auto) 2.6 [place] # (Auto) 0.7 Eos # (Auto) 0.0 Baso # (Auto) 0.0 Absolute Nucleated RBC 0.00 Nucleated RBC % 0.0 Sodium 140 Potassium 3.3 L Chloride 103 Carbon Dioxide 22 Anion Gap 15.0 H BUN 11 Creatinine 1.1 Estimated GFR (MDRD) 81 L Glucose 123 H Calcium 9.9 Total Bilirubin 1.8 H AST 21 ALT 20 Alkaline Phosphatase 32 L Total Protein 8.6 H Albumin 4.9 Globulin 3.7 Albumin/Globulin Ratio 1.3 Lipase 24 TSH 0.89 Urine Color Urine Clarity Urine pH Ur Specific [place] Urine Protein Urine Glucose (UA) Urine Ketones Urine Occult Blood Urine Nitrite Urine Bilirubin Urine Urobilinogen Ur Leukocyte Esterase Urine RBC Urine WBC Ur Squamous Epith Cells Urine Bacteria Urine Casts Urine Mucus Ur Microscopic Review Urine Culture Comments Salicylates < 6.0 Urine Opiates Screen Ur Oxycodone Screen Urine Methadone Screen Ur Propoxyphene Screen Acetaminophen < 10 L Ur Barbiturates Screen Ur Tricyclics Screen Ur Phencyclidine Scrn Ur Amphetamine Screen U Methamphetamines Scrn U Benzodiazepines Scrn Urine Cocaine Screen U Cannabinoids Screen Ethyl Alcohol < 5.0 08/29/18 08/30/18 08/30/18 10:37 04:00 04:20 WBC 8.9 RBC 4.80 Hgb 13.8 L Hct 41.4 L MCV 86.3 MCH 28.8 MCHC 33.4 RDW 14.1 Plt Count 194 MPV 9.1 Neut # (Auto) 5.4 Lymph # (Auto) 2.8 [place] # (Auto) 0.7 Eos # (Auto) 0.1 Baso # (Auto) 0.0 Absolute Nucleated RBC 0.01 Nucleated RBC % 0.1 Sodium 142 Potassium 3.3 L Chloride 107 Carbon Dioxide 24 Anion Gap 11.0 BUN 13 Creatinine 1.0 Estimated GFR (MDRD) 90 Glucose 109 H Calcium 8.9 Total Bilirubin 2.3 H AST 20 ALT 21 Alkaline Phosphatase 28 L Total Protein 6.9 Albumin 3.8 Globulin 3.1 Albumin/Globulin Ratio 1.2 Lipase 20 L TSH Urine Color YELLOW Urine Clarity CLOUDY Urine pH 5.5 Ur Specific [place] 1.025 Urine Protein 100 H Urine Glucose (UA) NEGATIVE Urine Ketones TRACE Urine Occult Blood NEGATIVE Urine Nitrite POSITIVE H Urine Bilirubin NEGATIVE Urine Urobilinogen 1 (NORMAL) Ur Leukocyte Esterase NEGATIVE Urine RBC 0-5 Urine WBC 4-5 Ur Squamous Epith Cells NONE SEEN Urine Bacteria Few Urine Casts 0-2 Hyaline Casts Urine Mucus Marked Strands Ur Microscopic Review INDICATED Urine Culture Comments INDICATED Salicylates Urine Opiates Screen NEGATIVE Ur Oxycodone Screen NEGATIVE Urine Methadone Screen NEGATIVE Ur Propoxyphene Screen NEGATIVE Acetaminophen Ur Barbiturates Screen NEGATIVE Ur Tricyclics Screen NEGATIVE Ur Phencyclidine Scrn NEGATIVE Ur Amphetamine Screen NEGATIVE U Methamphetamines Scrn NEGATIVE U Benzodiazepines Scrn NEGATIVE Urine Cocaine Screen NEGATIVE U Cannabinoids Screen POSITIVE H Ethyl Alcohol PD MEDICAL DECISION MAKING - ED course ED course: Urinalysis was positive for nitrites, otherwise pretty unimpressive. I queried him about symptoms of UTI, he did not have any. I think it that point it is reasonable to wait for the culture before starting antibiotics.
[2018-08-29 10:17] LABS: BASOPHILS % (AUTO) 0.3 %; EOSINOPHILS % (AUTO) 0.2 %; HGB - HEMOGLOBIN 14.6 g/dL (14.0-18.0); LYMPHOCYTES # (AUTO) 2.6 10^3/uL (1.5-3.5); LYMPHOCYTES % (AUTO) 30.2 %; MEAN CORPUSCULAR HEMOGLOBIN 28.8 pg (27.0-31.0); MEAN CORPUSCULAR HGB CONC 33.9 g/dL (32.0-36.0); MEAN CORPUSCULAR VOLUME 85.1 fL (80.0-94.0); MEAN PLATELET VOLUME 8.4 fL (7.4-11.4); MONOCYTES # (AUTO) 0.7 10^3/uL (0.0-1.0); MONOCYTES % (AUTO) 7.9 %; NEUTROPHILS # (AUTO) 5.3 10^3/uL (1.5-6.6); NEUTROPHILS % (AUTO) 61.4 %; PLT - PLATELET COUNT 233 10^3/uL (130-450); RED BLOOD COUNT 5.05 10^6/uL (4.70-6.10); RED CELL DISTRIBUTION WIDTH 14.4 % (12.0-15.0); WHITE BLOOD COUNT 8.6 x10^3/uL (4.8-10.8)
[2018-08-29 10:31] LABS: ACETAMINOPHEN < 10 ug/mL (10-30); ALBUMIN 4.9 g/dL (3.2-5.5); ALBUMIN/GLOBULIN RATIO 1.3 (1.0-2.2); ALKALINE PHOSPHATASE 32 IU/L (42-121); ALT ALANINE AMINOTRANSFERASE 20 IU/L (10-60); AST ASPARTATE AMINOTRANSFERASE 21 IU/L (10-42); BILIRUBIN,TOTAL 1.8 mg/dL (0.2-1.0); BUN - BLOOD UREA NITROGEN 11 mg/dL (6-20); CREATININE 1.1 mg/dL (0.6-1.2); GFR - MDRD 81 (>89); LIPASE 24 U/L (22-51); SALICYLATE < 6.0 mg/dL; TOTAL PROTEIN 8.6 g/dL (6.7-8.2)
[2018-08-29 10:41] LABS: CALCIUM 9.9 mg/dL (8.5-10.3); CARBON DIOXIDE - CO2 22 mmol/L (21-32); CHLORIDE 103 mmol/L (101-111); GLUCOSE 123 mg/dL (70-100); SODIUM 140 mmol/L (135-145)
[2018-08-29 10:41] LABS: MUDS CUTOFF CONCENTRATIONS CUTOFF CONC BELOW:
[2018-08-29 10:43] LABS: GLUCOSE, URINE (UA) NEGATIVE (NEGATIVE); KETONES,URINE (UA) TRACE mg/dL (NEGATIVE); LEUKOCYTE ESTERASE, URINE NEGATIVE (NEGATIVE); NITRITE,URINE POSITIVE (NEGATIVE); OCCULT BLOOD,URINE NEGATIVE (NEGATIVE); PH,URINE 5.5 PH (5.0-7.5); PROTEIN,URINE 100 mg/dL (NEGATIVE); UROBILINOGEN,URINE 1 (NORMAL) E.U./dL (NORMAL)
[2018-08-29 10:44] LABS: CLARITY,URINE CLOUDY (CLEAR)
[2018-08-29 10:51] LABS: BILIRUBIN,URINE NEGATIVE (NEGATIVE); ICTOTEST,URINE NEGATIVE
[2018-08-29 10:57] LABS: AMPHETAMINE SCREEN,URINE NEGATIVE (NEGATIVE); BENZODIAZEPINES SCREEN, URINE NEGATIVE (NEGATIVE); COCAINE SCREEN URINE NEGATIVE (NEGATIVE); METHADONE SCREEN, URINE NEGATIVE (NEGATIVE); METHAMPHETAMINES SCREEN, URINE NEGATIVE (NEGATIVE); OPIATE SCREEN, URINE NEGATIVE (NEGATIVE); OXYCODONE SCREEN, URINE NEGATIVE (NEGATIVE); PROPOXYPHENE SCREEN, URINE NEGATIVE (NEGATIVE); TRICYCLIC ANTIDEPRESSANT,URINE NEGATIVE (NEGATIVE)
[2018-08-29 11:10] LABS: BACTERIA,URINE Few /HPF (None Seen); MUCUS,URINE Marked Strands; RBC,URINE 0-5 /HPF (0-5); SQUAMOUS EPITHELIAL CELL,UR NONE SEEN (<= Few)
[2018-08-29 11:11] LABS: CASTS, URINE 0-2 Hyaline Casts /LPF
[2018-08-29] MEDS ORDERED: LORazepam 1 MG TABLET PO STA (12:20)
[2018-08-29] MEDS ORDERED: LORazepam 2 MG/ML VIAL IM STA ×3 (14:58→18:49)
[2018-08-29] MEDS ORDERED: KETAMINE 500 MG/10 ML VIAL IM STA (20:17)
--- NOTE | 2018-08-29 23:32 | ED Physician Documentation ---
ED Addendum - Addendum Addendum: 08/29/18 23:27 I assumed care of the patient from the daytime ER physician. The patient was still having some angry outbursts and combativeness and pulling at the restraints. He had been sedated and sleeping for a little bit of time. Request from nursing was for re-dosing of medications. He is given Ativan 2 mg and Zyprexa 10 mg IM. This is provide some improvement in sedation and he was calm and quiet for couple of hours. However he subsequently got angry and verbal again. The [facility] has been working on bed placement during this time. She is okay with sedating the patient and in fact went to the limitations on placement is his need for restraints still and also the issue of his blood pressure being elevated. The nursing staff took a manual blood pressure cuff after he was medicated and his blood pressure was actually much better than the automatic one with his arm and restrained. However he was becoming more verbal again. I tried different medication and gave 0.3 mg/kg of IM ketamine. This did provide again some sedative and quieting effect but for an hour or so. However he was not pulling at his restraints as much. We did attempt him out of his restraints to see if that would actually allow him to be calmer since that was his main yelling complaint was being tied down. This was done while sure soft this diabetes were present. He was not combative during that time. However he was still rather verbal and angry. Not clear whether he is trustworthy at this point but will watch and see for a bit. Further care will be given to the nighttime overnight ER physician. AMARILYS bill at this point the placement she was working on at [facility] was unable to take him partly due to concerns over the blood pressure which was shown to be improved with a manual cuff and appropriate arm position. The other issue is that the patient does use CPAP at night and they are unable to accommodate that. I had the [facility] relayed to them that this is not a requirement that he have it during the night but they still balked at placement for now. The [facility] will continue placement attempts tomorrow morning.
[2018-08-29] MEDS ORDERED: LORazepam 2 MG/ML VIAL IVP STA (23:52)
[2018-08-29] MEDS ORDERED: diphenhydrAMINE INJ 50 MG/ML VIAL IM STA (23:52)
[2018-08-29] MEDS ORDERED: HALOPERIDOL 5 MG/ML VIAL IM STA (23:52)
--- NOTE | 2018-08-29 23:54 | ED Physician Documentation ---
ED Addendum - Addendum Addendum: 08/29/18 23:53 Patient received an handoff at approximately 2300. [facility] has been working on placement and unfortunately has been unsuccessful. Continued search for placement will need to begin again tomorrow morning. Patient has received multiple medications throughout the day including Haldol, Ativan, ketamine and others. Patient continues to exhibit increased agitation, yelling, swearing, and being physically violent. [employer] enforcement has been called several times. At this time, feel appropriate to try additional medications of Haldol, Ativan, and Benadryl IM to relieve patient's agitation.Patient tolerated medications well and is now resting and quiet. 08/30/18 00:30
[2018-08-30] MEDS ORDERED: KETAMINE 500 MG/10 ML VIAL IM STA ×2 (01:25→12:26)
--- NOTE | 2018-08-30 02:30 | ED Physician Documentation ---
ED Addendum - Addendum Addendum: 08/30/18 02:23 Unfortunately, patient became more and more agitated despite medications given previously. Reviewed patient's chart and during his ED stay he has received repeat doses of Haldol, Ativan, Zyprexa, as well as Benadryl, Versed, and Ketamine. Do have concern about repeating certain medications, particularly given high doses, which is largely due to patient's body habitus and being otherwise not sarah beth to medications. Ketamine dose previously given was rather small given patient's body habitus and desired achievement of mild sedation. Confirmed dosing of ketamine 46 mg/kg IM is appropriate for severe agitation. Attempted to have discussion with patient and redirect, but unfortunately he is unreasonable and continues to yell, swear, and threaten staff. He is violent and escalated enough to almost overturn his own bed despite restraints. His bed had to be pushed up against a wall so that it did not flip over. If he was able to overturn his bed, not only would he put himself at extremely high risk for injury, but also staff members. Staff members are close enough to also be injured if that happened. [place] appropriate to give additional dose of ketamine. The lower end of IM dosing for agitation would be 500 mg given his weight. As he received a small dose earlier, felt appropriate to give 300 mg IM ketamine at this time. Patient tolerated injection well and placed on monitors. Patient did not exhibit hemodynamic instability or hypoxia. Patient much more calm and sleeping at this point. If patient awakens again and continues to exhibit such violent and threatening behavior towards himself and others, will have to consider intubation as a last resort given previous medications and other attempts at sedation. Of note, patient not interested in eating overnight, but has taken fluid orally without issue. Also requested tele-psychiatry consult at this time particularly due to patient's continued agitation and for medication advice. Patient occasionally aroused and was somewhat agitated, but not nearly as significant as before. Do have concern for limited oral intake and dehydration given his state and compliancy. While he was resting, nursing staff able to get IV access and patient started on IV fluids as well as obtained screening lab work, which can be compared to earlier lab work from when patient first arrived to the ED. Again review patient's drug screen and work up from earlier. His drug screen does not reflect anything except for marijuana, however, high dose or high potency marijuana can potentially exhibit similar symptoms, as can other medications or drugs that are not reflected on a drug screen such as bath salts. Spoke with tele-psychiatry who also agreed that patient is likely experiencing drug related symptoms. Psychiatrist did not necessarily have any specific other recommendations when it came to medications, but patient will be placed in the queue for further evaluation. Patient evaluation pending. Patient signed out to Dr. James at AM shift change and dispo pending psychiatry, SW and re-evalu ation. 08/30/18 03:09 08/30/18 04:07 08/30/18 05:02 08/30/18 06:28
[2018-08-30] MEDS ORDERED: SODIUM CHLORIDE 0.9% 2,000 ML IV ONE (04:06)
[2018-08-30 04:36] LABS: BASOPHILS % (AUTO) 0.2 %; EOSINOPHILS # (AUTO) 0.1 10^3/uL (0.0-0.7); EOSINOPHILS % (AUTO) 0.8 %; HGB - HEMOGLOBIN 13.8 g/dL (14.0-18.0); LYMPHOCYTES # (AUTO) 2.8 10^3/uL (1.5-3.5); LYMPHOCYTES % (AUTO) 31.2 %; MEAN CORPUSCULAR HEMOGLOBIN 28.8 pg (27.0-31.0); MEAN CORPUSCULAR HGB CONC 33.4 g/dL (32.0-36.0); MEAN CORPUSCULAR VOLUME 86.3 fL (80.0-94.0); MEAN PLATELET VOLUME 9.1 fL (7.4-11.4); MONOCYTES # (AUTO) 0.7 10^3/uL (0.0-1.0); MONOCYTES % (AUTO) 7.5 %; NEUTROPHILS # (AUTO) 5.4 10^3/uL (1.5-6.6); NEUTROPHILS % (AUTO) 60.3 %; PLT - PLATELET COUNT 194 10^3/uL (130-450); RED CELL DISTRIBUTION WIDTH 14.1 % (12.0-15.0); WHITE BLOOD COUNT 8.9 x10^3/uL (4.8-10.8)
[2018-08-30 04:47] LABS: ALBUMIN 3.8 g/dL (3.2-5.5); ALBUMIN/GLOBULIN RATIO 1.2 (1.0-2.2); BILIRUBIN,TOTAL 2.3 mg/dL (0.2-1.0); CALCIUM 8.9 mg/dL (8.5-10.3); TOTAL PROTEIN 6.9 g/dL (6.7-8.2)
[2018-08-30] MEDS ORDERED: HALOPERIDOL 1 MG TABLET PO SCH (09:00)
[2018-08-30] MEDS ORDERED: OLANZapine ODT 5 MG TABLET TL ONE (11:25)
[2018-08-30 15:43] VITALS: BP 132/112
== END 2018-08-30 16:28 ==
LOC: EDUNIT# → EDBD → ED 09:57
DX: F31.2 Bipolar disorder, current episode manic severe with psychotic features (principal); R03.0 Elevated blood-pressure reading, without diagnosis of hypertension; F41.9 Anxiety disorder, unspecified; Z78.1 Physical restraint status; R82.998 Other abnormal findings in urine; R45.1 Restlessness and agitation; F12.90 Cannabis use, unspecified, uncomplicated
CPT/HCPCS: 36415; 51701; 80053; 80306; 80307; 80320; 80329; 81001; 83690; 84443; 85025; 87086; 93005; 96361; 96372; 96374; 99285; A9270; J1200; J2060; 81003

== ENCOUNTER 2018-10-30 16:13 | Outpatient (CLI) | payer MEDICAID | END 2018-10-30 16:14 | disposition home or self-care (01) | LOC: SC 16:13 | PROVIDERS: ATTEND Nurse Practitioner Family | DX: G47.33 Obstructive sleep apnea (adult) (pediatric) (principal) | CPT/HCPCS: 99212; 99214 ==

== ENCOUNTER 2018-12-09 07:43 | Emergency (ER) | payer MEDICAID ==
[2018-12-09] MEDS ORDERED: NEOMYCIN/POLYMYX/DEXAMETH OPHTH DROPS 5 ML RIGHTEYE STA (08:06)
--- NOTE | 2018-12-09 08:09 | ED Physician Documentation ---
PD HPI OPHTHO - Stated complaint Stated Complaint: EYE SWOLLEN - Chief complaint Chief Complaint: Heent - History obtained from History obtained from: Patient - History of Present Illness Timing - onset: Yesterday Timing - duration: Days (2) Timing - details: Gradual onset, Still present Location: Right Quality / character: Sharp Associated symptoms: Redness, Swelling, Tearing. No: FB sensation, Photophobia, Decreased vision, Loss of vision Contributing factors: Exposed to conjunctivitis Similar symptoms before: Diagnosis (stye) Recently seen: Not recently seen - Additional information Additional information: Previously well 28-year old male presents with a 2-day history of swelling to the right lower conjunctivo-. He states that he is wearing a new CPAP mask and he felt that this may have just squished his cheek a bit. He felt that this was similar to what he has had when he had a stye previously and this is progressed to swelling of his lower lid a lot of erythema and tearing. He does not have a foreign body sensation or any problem with his vision itself. He is not otherwise ill. Review of Systems Constitutional: denies: Fever Eyes: reports: Irritation. denies: Decreased vision, Photophobia Ears: denies: Ear pain Nose: denies: Rhinorrhea / runny nose, Congestion Respiratory: denies: Cough PD PAST MEDICAL HISTORY - Past Medical History Cardiovascular: None Respiratory: None, Sleep apnea Neuro: None Endocrine/Autoimmune: None GI: None : None HEENT: None Psych: Depression, Anxiety, Bipolar disorder Musculoskeletal: None Derm: None - Past Surgical History Past Surgical History: Yes HEENT: Tonsil/Adenoidectomy - Present Medications Home Medications: Ambulatory Orders Medication Instructions Recorded Confirmed Neomycin/Poly/Dex Ophth Drops 1 drops RIGHTEYE QID #1 bottle 12/09/18 [Maxitrol Ophth Drops] - Allergies Allergies/Adverse Reactions: Allergies Allergy/AdvReac Type Severity Reaction Status Date / Time No Known Drug Allergies Allergy Verified 12/09/18 07:57 - Social History Does the pt smoke?: No Smoking Status: Never smoker Does the pt drink ETOH?: Yes Does the pt have substance abuse?: Yes Substance Use and Type: Marijuana - Immunizations Immunizations are current?: Yes - POLST Patient has POLST: No PD ED PE NORMAL - Vitals Vital signs reviewed: Yes (hypertensive ) - General General: Alert and oriented X 3, No acute distress, Well developed/nourished - HEENT HEENT: Atraumatic, PERRL, EOMI, Other (There is swelling and erythema to the lower conjunctival sac and sclera without focal stye. There is no hyphema or pupilarry asymetry. There is no fb. ) - Neck Neck: Supple, no meningeal sign, No bony TTP - Respiratory Respiratory: No respiratory distress - Derm Derm: Normal color, Warm and dry, No rash - Extremities Extremities: No deformity, No edema - Neuro Neuro: Alert and oriented X 3, manifest clerk 2-12 intact, No motor deficit, No sensory deficit, Normal speech Eye Opening: Spontaneous Motor: Obeys Commands Verbal: Oriented GCS Score: 15 - Psych Psych: Normal mood, Normal affect Results - Vitals Vitals: Vital Signs - 24 hr 12/09/18 07:52 Temperature 36.8 C Heart Rate 90 Respiratory 18 Rate Blood Pressure 161/76 H O2 Saturation 100 Oxygen O2 Source Room air PD MEDICAL DECISION MAKING - ED course Complexity details: considered differential, d/w patient ED course: 28 y/o male with right sided conjunctivitis is administered maxitrol opthalmic drops. Departure - Departure Disposition: 01 Home, Self Care Clinical Impression: Conjunctivitis Qualifiers: Conjunctivitis type: acute Acute conjunctivitis type: bacterial Laterality: right Qualified Code(s): H10.31 - Unspecified acute conjunctivitis, right eye Condition: Stable Instructions: ED Conjunctivitis Bacterial Follow-Up: Dylan Lagos PA-C [Primary Care Provider] - Prescriptions: Neomycin/Poly/Dex Ophth Drops [Maxitrol Ophth Drops] 1 drops RIGHTEYE QID #1 bottle
[2018-12-09 08:54] VITALS: BP 155/67
== END 2018-12-09 08:53 | disposition home or self-care (01) ==
LOC: ED 07:43
DX: H10.31 Unspecified acute conjunctivitis, right eye (principal)
CPT/HCPCS: 99282; 99284; J3490

== ENCOUNTER 2018-12-10 18:45 | Emergency (ER) | payer MEDICAID | END 2018-12-10 19:09 | disposition left against medical advice (07) | LOC: ED 18:45 | DX: Z53.21 Procedure and treatment not carried out due to patient leaving prior to being seen by health care provider (principal) ==

== ENCOUNTER 2019-01-08 19:37 | Emergency (ER) | payer MEDICAID ==
[2019-01-08 20:04] VITALS: BP 131/74
[2019-01-08] MEDS ORDERED: DOXYCYCLINE 100 MG TABLET PO STA (22:04)
[2019-01-08] MEDS ORDERED: MUPIROCIN 2% OINT 1 GM TOP STA (22:04)
--- NOTE | 2019-01-08 22:06 | ED Physician Documentation ---
PD HPI MALE - Stated complaint Stated Complaint: STITCHES OPENED - Chief complaint Chief Complaint: Laceration - History obtained from History obtained from: Patient - History of Present Illness Timing - onset: How many weeks ago (1) Timing - duration: Weeks (1) Timing - details: Gradual onset (he had vasectomy on 01/02 and was healing okay. today at work he had left scrotal wound open slightly and have some clear to white fluid out. No fevers. Has appt with Urologist followup in another week.) Associated symptoms: Scrotal swelling (has swelling still as incision site, and had some redness to the left side wound.). No: Dysuria, Urinary frequency PD HPI MALE CONTRIB FACTORS: Other (recent vasectomy) Similar symptoms before: Has not had sx before Recently seen: Surgery Review of Systems Constitutional: denies: Fever, Chills, Myalgias GI: denies: Abdominal Pain, Nausea, Vomiting PD PAST MEDICAL HISTORY - Past Medical History Cardiovascular: None Respiratory: None, Sleep apnea Neuro: None Endocrine/Autoimmune: None GI: None : None HEENT: None Psych: Depression, Anxiety, Bipolar disorder Musculoskeletal: None Derm: None - Past Surgical History Past Surgical History: Yes HEENT: Tonsil/Adenoidectomy - Present Medications Home Medications: Ambulatory Orders Medication Instructions Recorded Confirmed Doxycycline Hyclate 100 mg PO BID #14 capsule 01/08/19 Mupirocin 1 applic TP TID #15 g 01/08/19 - Allergies Allergies/Adverse Reactions: Allergies Allergy/AdvReac Type Severity Reaction Status Date / Time No Known Drug Allergies Allergy Verified 01/08/19 20:04 - Social History Does the pt smoke?: No Smoking Status: Never smoker Does the pt drink ETOH?: Yes Does the pt have substance abuse?: Yes - Immunizations Immunizations are current?: Yes - POLST Patient has POLST: No PD ED PE NORMAL - Vitals Vital signs reviewed: Yes - General General: Alert and oriented X 3, No acute distress, Well developed/nourished - Abdomen Abdomen: Soft, Non tender - Male Male : Other (right scrotum with vasectomy wound with induration but not tender and no redness. Left scrotal sac with good cremaster reflex. The surgical wound is red without any drainage nor fluctuance. Has similar induration from healing scar. ) - Rectal Rectal: Deferred - Back Back: No CVA TTP - Derm Derm: Normal color, Warm and dry Results - Vitals Vitals: Vital Signs - 24 hr 01/08/19 19:57 Temperature 36.6 C Heart Rate 94 Respiratory 16 Rate Blood Pressure 131/74 H O2 Saturation 97 Oxygen O2 Source Room air PD MEDICAL DECISION MAKING - ED course Complexity details: considered differential (looks like skin infection or small subcut infection at vasectomy site on left. No abscess. Can treat with abx. ), d/w patient Departure - Departure Disposition: 01 Home, Self Care Clinical Impression: Wound infection after surgery Condition: Stable Record reviewed to determine appropriate education?: Yes Follow-Up: Dylan Lagos PA-C [Primary Care Provider] - Prescriptions: Doxycycline Hyclate 100 mg PO BID #14 capsule Mupirocin 1 applic TP TID #15 g Comments: It does look like there may be a touch of infection at the wound on the scrotum. It does not feel deeper necessarily. Cleanse the area 2-3 times daily with soap and water and apply mupirocin topical antibiotic. You can apply it to the right scrotal wound as well. Doxycycline oral antibiotic twice daily for a week. Recheck if the wounds are still not healing well over the next several days to week. Discharge Date/Time: 01/08/19 22:13
== END 2019-01-08 22:13 | disposition home or self-care (01) ==
LOC: ED 19:37
DX: T81.49XA Infection following a procedure, other surgical site, initial encounter (principal); Y83.8 Other surgical procedures as the cause of abnormal reaction of the patient, or of later complication, without mention of misadventure at the time of the procedure; Z98.52 Vasectomy status
CPT/HCPCS: 99282; 99284; A9270

== ENCOUNTER 2020-12-16 08:00 | Outpatient (CLI) | payer MEDICAID | END 2020-12-16 23:59 | disposition home or self-care (01) | LOC: LAB.N 08:00 | PROVIDERS: ATTEND Physician Assistant Medical | DX: R53.81 Other malaise (principal); R53.83 Other fatigue; Z20.822 Contact with and (suspected) exposure to COVID-19 ==

== ENCOUNTER 2021-01-14 14:59 | Outpatient (CLI) | payer MEDICAID ==
--- NOTE | 2021-01-14 15:34 | SLEEP CARE CONSULTATION ---
Information from patient questionnaire entered by Chayo Pitts. I have reviewed and concur with the information entered by Chayo Pitts. This document represents the service I personally performed and the decisions made by , Cecy Rogers ARNP. History of Present Illness Service Date and Time: 01/14/2021 1459 Previous diagnosis: Very Severe, Obstructive Sleep Apnea-Hypopnea Syndrome AHI: 79.4 (in 2010) Reason for follow up: annual (last seen 10/2018) Equipment type: BiPAP Equipment obtained from: [employer] (getting supplies from [employer] for a long time) Mask style: Full face Mask brand: Respironics (Dreamwear) Backup mask available: No (needs supplies) Prior sleep studies: Yes Year and Where: [address] - [facility] Type of Sleep Study: Polysomnography HPI additional information: EASTON SALCEDO was diagnosed to have very severe, AHI , obstructive sleep apnea- hypopnea syndrome and returned today for BIPAP therapy annual follow-up. CPAP Compliance Data - Data Reviewed with Patient Average duration of nightly device use: 8 hr 2 min Compliance rate %: 93.3 (180 days) Current pressure setting (cmH2O): 15/10 Humidity settin Heated hose settin Average residual AHI: 1.0 Average large leak: 3 min 46 sec Subjective Patient concerns: reports: nasal congestion, dry mouth, nose, throat, other (headache, CPAP recall). denies: aerophagia, mask discomfort, air blowing in eyes, mask leak noise, condensation in mask/hose, epistaxis Observed to snore while using device: No Current pressure setting perceived as: too low On therapy, patient: reports: sleeping better, awakening more refreshed, being more awake and alert during the day, more rested overall. denies: drowsiness while driving Initial [place] Sleepiness Scale score: 15 (in 2010) Current [place] Sleepiness Scale score: 5 Allergies and Home Medications Home medication list reviewed: Yes (Invega Trinz 540 mg given IM every 3 months) Review of Systems Review of systems same as previous: No (asthma) Physical Exam Heart Rate: 83 O2 Saturation: 97 Height: 6 ft Weight: 372 lb Body Mass Index: 50.4 BMI Classification: Morbidly Obese Impression and Plan 1. Obstructive Sleep Apnea-Hypopnea Syndrome, very severe, with good treatment compliance and good apnea control. On BIPAP therapy, the patient has better sleep quality and is more rested overall. Patient is aware of the recall and is concerned about getting cancer. He states a month or 2 ago he was in the urgent care with respiratory issues was told that his asthma was coming back. He was asthmatic as a child. He has noted some black debris in the hoses of his machine. He states he cannot sleep without it so has continued to use it but would like to be able to replace his device. He last updated his device in 2019. Patient has already registered their device for the recall. Patient informed that they may use an inline CPAP filter that they can obtain online to reduce chance of any particles being inhaled or ingested. We discussed thoroughly the health risks of not using the CPAP versus continuing use with the filter in place. If patient is not able to sleep due to waking up choking, gasping for air or other respiratory distress that they may decide to continue using it until it is either replaced or repaired. I will try to see if we can get a replacement device since his machine is definitely affected and he is very severe JESSIE and needs his BIPAP. Patient may look to see if he can obtain another device on his own if he cannot get his insurance to replace it. Patient voiced understanding and agreement with plan. Patient was encouraged to lose weight for their overall health and to reduce apneas. Patient's apnea severity and rationale for treatment to reduce apnea, improve sleep quality and reduce cardiovascular and cerebrovascular events was reviewed. I also reviewed the benefit of consistent device use of BIPAP for hypertension and depression. * Continue BIPAP pressure at 15/10 cmH2O * Replacement device * Notify me if snoring with mask or feeling that the pressure is too much or too little * Attempt to lose weight * Call this office if any problems using BIPAP * Return for follow up one month after obtaining new device, or sooner if concerns arise Counseling Topics: Spare mask, Weight loss health impact Visit Type: In Office Time Spent with Patient (minutes): 24 Provider Statement: I spent 100% of the Face to Face Visit with the patient with greater than 50% spent counseling the patient and coordination of care.
== END 2021-01-14 15:00 | disposition home or self-care (01) ==
LOC: SC 14:59
PROVIDERS: ATTEND Nurse Practitioner Family
DX: G47.33 Obstructive sleep apnea (adult) (pediatric) (principal); E66.01 Morbid (severe) obesity due to excess calories; Z68.43 Body mass index [BMI] 50.0-59.9, adult
CPT/HCPCS: 99212; 99213

== ENCOUNTER 2021-07-23 13:34 | Emergency (ER) | payer MEDICAID ==
--- NOTE | 2021-07-23 14:42 | XRAY Report ---
PROCEDURE: Chest 2 View X-Ray INDICATIONS: cough TECHNIQUE: 2 view(s) of the chest. COMPARISON: 04/05/2017.. FINDINGS: Surgical changes and devices: None. Lungs and pleura: No pleural effusions or pneumothorax. Lungs are clear. Eventration of the right h emidiaphragm. Mediastinum: Mediastinal contours are normal. Heart size is normal. Bones and chest wall: No suspicious bony abnormalities. Soft tissues appear unremarkable. IMPRESSION: No acute cardiopulmonary disease process. Reviewed by: Dara Ramirez MD, PhD on 07/23/2021 2:41 PM PDT Approved by: Dara Ramirez MD, PhD on 07/23/2021 2:41 PM PDT Station ID: [id number]
--- NOTE | 2021-07-23 14:56 | ED Physician Documentation ---
PD HPI DYSPNEA - Stated complaint Stated Complaint: SOA, COUGH - Chief complaint Chief Complaint: Resp - History obtained from History obtained from: Patient - Additional information Additional information: 31-year-old gentleman with history of schizophrenia and tobacco abuse presents with 5 days of productive cough with black sputum and shortness of breath. No fevers. Multiple family members sick with respiratory illnesses. Review of Systems Constitutional: reports: Fatigue. denies: Fever, Chills Cardiac: denies: Chest pain / pressure, Palpitations Respiratory: reports: Dyspnea, Cough PD PAST MEDICAL HISTORY - Past Medical History Cardiovascular: None Respiratory: None, Sleep apnea Neuro: None Endocrine/Autoimmune: None GI: None : None HEENT: None Psych: Depression, Anxiety, Bipolar disorder Musculoskeletal: None Derm: None - Past Surgical History Past Surgical History: Yes HEENT: Tonsil/Adenoidectomy - Present Medications Home Medications: Ambulatory Orders Medication Instructions Recorded Confirmed Albuterol Sulf [Ventolin Hfa 1 - 2 puffs INH Q4HR PRN #1 inhaler 07/23/21 Inhaler] Doxycycline Hyclate 100 mg PO BID #14 tab.sr 07/23/21 Paliperidone Palmitate [Invega 07/23/21 Trinza] guaiFENesin/CODEINE [Robitussin AC] 5 - 10 ml PO Q6H PRN #120 ml 07/23/21 - Allergies Allergies/Adverse Reactions: Allergies Allergy/AdvReac Type Severity Reaction Status Date / Time No Known Drug Allergies Allergy Verified 07/23/21 13:46 - Social History Does the pt smoke?: Yes Smoking Status: Current every day smoker Does the pt drink ETOH?: Yes Does the pt have substance abuse?: Yes - Immunizations Immunizations are current?: Yes - POLST Patient has POLST: No PD ED PE NORMAL - Vitals Vital signs reviewed: Yes - General General: Alert and oriented X 3, No acute distress - Cardiac Cardiac: RRR, No murmur - Respiratory Respiratory: Other (Mild bibasilar wheezes and rhonchi without focal findings) - Abdomen Abdomen: Normal bowel sounds, Soft, Non tender - Back Back: No CVA TTP, No spinal TTP - Derm Derm: Normal color, Warm and dry Results - Vitals Vitals: Vital Signs - 24 hr 07/23/21 07/23/21 13:43 15:02 Temperature 37.1 C 37 C Heart Rate 100 90 Respiratory 22 20 Rate Blood Pressure 130/80 132/100 H O2 Saturation 93 95 Oxygen O2 Source Room air PD MEDICAL DECISION MAKING - ED course ED course: Morbidly obese 31-year-old gentleman with history of psychiatric illness presents with bronchitis. Chest x-ray, 2 view interpreted contemporaneously by me is clear. Given his comorbidities and tobacco abuse, potential for underlying occult COPD seems reasonable to cover with antibiotics. Of note he has a history of severe psychosis and although he has no psychosis now seems reasonable to hold on oral steroids. Departure - Departure Disposition: 01 Home, Self Care Clinical Impression: Bronchitis Condition: Good Record reviewed to determine appropriate education?: Yes Instructions: ED Bronchitis Asthmatic Prescriptions: Albuterol Sulf [Ventolin Hfa Inhaler] 1 - 2 puffs INH Q4HR PRN #1 inhaler PRN Reason: Shortness Of Air/Wheezing Doxycycline Hyclate 100 mg PO BID #14 tab.sr guaiFENesin/CODEINE [Robitussin AC] 5 - 10 ml PO Q6H PRN #120 ml PRN Reason: Cough Comments: I sent your prescriptions to [facility] in [place]. As discussed it sounds like you have bronchitis. Your chest x-ray looks okay. Do not drink or drive while taking codeine cough syrup. Follow-up with your doctor next week for recheck. Return for new or worsening symptoms. Try to continue to abstain from smoking. Discharge Date/Time: 07/23/21 15:03
[2021-07-23 15:02] VITALS: BP 132/100
== END 2021-07-23 15:03 | disposition home or self-care (01) ==
LOC: ED 13:34
DX: J40 Bronchitis, not specified as acute or chronic (principal); Z72.0 Tobacco use; F20.9 Schizophrenia, unspecified
CPT/HCPCS: 99282; 99283

== ENCOUNTER 2022-04-11 10:25 | Emergency (ER) | payer MEDICAID | END 2022-04-11 11:29 | disposition left against medical advice (07) | LOC: ED 10:25 | DX: Z53.21 Procedure and treatment not carried out due to patient leaving prior to being seen by health care provider (principal) | CPT/HCPCS: 80053; 83690; 85025 ==

== ENCOUNTER 2022-04-12 08:41 | Emergency (ER) | payer MEDICAID ==
[2022-04-12 09:11] VITALS: BP 143/81
[2022-04-12 09:35] LABS: BASOPHILS % (AUTO) 0.3 %; HCT - HEMATOCRIT 44.5 % (42.0-52.0); HGB - HEMOGLOBIN 15.4 g/dL (14.0-18.0); LYMPHOCYTES % (AUTO) 16.6 %; MEAN CORPUSCULAR HEMOGLOBIN 29.7 pg (27.0-31.0); MEAN CORPUSCULAR HGB CONC 34.6 g/dL (32.0-36.0); MEAN CORPUSCULAR VOLUME 85.9 fL (80.0-94.0); MEAN PLATELET VOLUME 9.5 fL (7.4-11.4); MONOCYTES # (AUTO) 1.1 10^3/uL (0.0-1.0); MONOCYTES % (AUTO) 18.2 %; NEUTROPHILS % (AUTO) 64.6 %; PLT - PLATELET COUNT 247 10^3/uL (130-450); RED BLOOD COUNT 5.18 10^6/uL (4.70-6.10); RED CELL DISTRIBUTION WIDTH 13.5 % (12.0-15.0); WHITE BLOOD COUNT 6.1 x10^3/uL (4.8-10.8)
[2022-04-12 09:43] LABS: ALBUMIN 4.8 g/dL (3.2-5.5); ALBUMIN/GLOBULIN RATIO 1.1 (1.0-2.2); BILIRUBIN,TOTAL 0.8 mg/dL (0.2-1.0); CALCIUM 10.5 mg/dL (8.5-10.3); CREATININE 1.5 mg/dL (0.6-1.2); POTASSIUM 4.6 mmol/L (3.5-5.0); TOTAL PROTEIN 9.2 g/dL (6.7-8.2)
== END 2022-04-12 10:47 | disposition left against medical advice (07) ==
LOC: ED 08:41
DX: R05.9 Cough, unspecified (principal); R10.9 Unspecified abdominal pain; Z53.21 Procedure and treatment not carried out due to patient leaving prior to being seen by health care provider
CPT/HCPCS: 36415; 80053; 83690; 85025

== ENCOUNTER 2022-04-19 03:21 | Emergency (ER) | payer MEDICAID ==
[2022-04-19 03:35] VITALS: BP 128/71
[2022-04-19] MEDS ORDERED: oxyCODONE 5 MG TABLET PO STA (03:53)
--- NOTE | 2022-04-19 03:53 | ED Physician Documentation ---
History of Present Illness - Stated complaint Stated Complaint: EAR INFECTION - Chief complaint Chief Complaint: Heent - Additonal information Additional information: Patient is 31-year-old male presenting to the emergency department with left ear pain. Seen here approximately 3 days ago, at that time diagnosed with bilateral otitis media and externa. Started on Augmentin moxifloxacin. Reports today left ear pain became significantly worse with decreased hearing to the left ear. Reports feeling that the left ear canal is now obstructed and that when he tries to place his medicated eardrops in the a dribble out his ear. Denies fever, neck stiffness, blurred vision or double vision. Review of Systems Ten Systems: 10 systems reviewed and negative Ears: reports: Loss of hearing, Ear pain, Drainage/discharge PD PAST MEDICAL HISTORY - Past Medical History Past Medical History: Yes Cardiovascular: None Respiratory: None, Sleep apnea Neuro: None Endocrine/Autoimmune: None GI: None : None HEENT: None Psych: Depression, Anxiety, Bipolar disorder Musculoskeletal: None Derm: None - Past Surgical History Past Surgical History: Yes HEENT: Tonsil/Adenoidectomy - Present Medications Home Medications: Ambulatory Orders Medication Instructions Recorded Confirmed Albuterol Sulf [Ventolin Hfa 1 - 2 puffs INH Q4HR PRN #1 inhaler 07/23/21 Inhaler] Doxycycline Hyclate 100 mg PO BID #14 tab.sr 07/23/21 Paliperidone Palmitate [Invega 07/23/21 Trinza] guaiFENesin/CODEINE [Robitussin AC] 5 - 10 ml PO Q6H PRN #120 ml 07/23/21 Doxycycline Hyclate 100 mg PO BID #14 cap 01/12/22 Amox/Clav 875/125 [Augmentin] 1 each PO Q12H #20 tablet 04/17/22 Ibuprofen [Motrin] 800 mg PO Q8H PRN #30 tablet 04/17/22 Ofloxacin [Ofloxacin Otic drops] 5 drops OT BID #10 ml 04/17/22 Oxycodone HCl/Acetaminophen 1 - 2 each PO Q6H PRN #10 tablet 04/17/22 [Percocet 5-325 mg Tablet] Neomycin/Polymyx/Hc Otic Drops 4 drops EACHEAR TID #10 ml 04/19/22 [Cortisporin Ear Susp] - Allergies Allergies/Adverse Reactions: Allergies Allergy/AdvReac Type Severity Reaction Status Date / Time No Known Drug Allergies Allergy Verified 04/19/22 03:36 - Social History Does the pt smoke?: Yes Smoking Status: Current every day smoker Does the pt drink ETOH?: No Does the pt have substance abuse?: Yes Substance Use and Type: Marijuana - Immunizations Immunizations are current?: Yes - POLST Patient has POLST: No PD ED PE NORMAL - Vitals Vital signs reviewed: Yes (wnl) - General General: Alert and oriented X 3, No acute distress, Well developed/nourished - HEENT HEENT: Other (Left external auditory canal is obstructed.) - Neck Neck: Supple, no meningeal sign, No bony TTP, No adenopathy, Thyroid normal, No JVD, No bruit - Cardiac Cardiac: RRR - Respiratory Respiratory: No respiratory distress Results - Vitals Vitals: Vital Signs - 24 hr 04/19/22 03:25 Temperature 36.3 C L Heart Rate 87 Respiratory 16 Rate Blood Pressure 128/71 O2 Saturation 95 Oxygen O2 Source Room air PD Medical Decision Making - ED course Complexity details: re-evaluated patient, d/w patient ED course: Patient 31-year-old male presenting to the emergency department with obstruction and increased pain to his left external auditory ear canal in setting of recent diagnosis of bilateral otitis media and otitis externa. Afebrile, hemodynamically stable on arrival to the emergency department. No nuchal rigidity or mastoid tenderness that would be concerning for meningitis or mastoiditis. Patient denied any blurred vision or double vision that would be of eminent concern for sinus venous thrombosis. Physical exam demonstrated obstruction to the left external auditory canal secondary to infectious/sebaceous material. Verbal consent was obtained, patient was given medication for pain control and an ear wick was placed in the left external auditory canal. This was followed by dose of corticotropin. Administration of this medication with the ear wick caused almost immediate improvement in the patient's symptoms. He is currently completing a course of Augmentin as well as a short course of ibuprofen and Percocet for pain control. He was initially prescribed Doxy ofloxacin however I will transition him over to a Hydrocortisone containing otic solution for increased local anti-inflammatory effect. He was again encouraged to follow-up carefully with primary care or return to the emergency department as needed. Final clinical impression: Obstructed left external auditory canal, bilateral otitis externa, bilateral otitis media. Departure - Departure Disposition: 01 Home, Self Care Clinical Impression: Otitis media, Otitis externa, Obstruction of external auditory canal Prescriptions: Neomycin/Polymyx/Hc Otic Drops [Cortisporin Ear Susp] 4 drops EACHEAR TID #10 ml
[2022-04-19] MEDS ORDERED: NEOMYCIN/POLYMYX/HC OTIC DROPS LEFTEAR STA (03:54)
== END 2022-04-19 04:21 | disposition home or self-care (01) ==
LOC: ED 03:21
DX: H61.392 Other acquired stenosis of left external ear canal (principal); H60.92 Unspecified otitis externa, left ear; H66.92 Otitis media, unspecified, left ear; F17.200 Nicotine dependence, unspecified, uncomplicated
CPT/HCPCS: 99281; 99282

== ENCOUNTER 2022-04-19 19:23 | Emergency (ER) | payer MEDICAID ==
[2022-04-19 19:36] VITALS: BP 143/72
[2022-04-19] MEDS ORDERED: KETOROLAC 30 MG/ML VIAL IM STA (20:20)
[2022-04-19] MEDS ORDERED: oxyCODONE/ACET 5/325 Prepack 4 PO STA (20:21)
--- NOTE | 2022-04-19 20:27 | ED Physician Documentation ---
History of Present Illness - Stated complaint Stated Complaint: LT EAR PX - Chief complaint Chief Complaint: Heent - History obtained from History obtained from: Patient - Additonal information Additional information: 31yM p/w otitis media and otitis externa, seen here yesterday for swelling to L ear and ear wick was placed. patient states he had significant relief and the swelling went down, ear wick fell out but then he had the swelling recur and it continues to be very painful. contant, aching, gradual onset, localized to the ear, nonradiating. no pain or swelling to surrounding tissues. no fevers Review of Systems Ears: reports: Ear pain PD PAST MEDICAL HISTORY - Past Medical History Cardiovascular: None Respiratory: None, Sleep apnea Neuro: None Endocrine/Autoimmune: None GI: None : None HEENT: None Psych: Depression, Anxiety, Bipolar disorder Musculoskeletal: None Derm: None - Past Surgical History Past Surgical History: Yes HEENT: Tonsil/Adenoidectomy - Present Medications Home Medications: Ambulatory Orders Medication Instructions Recorded Confirmed Albuterol Sulf [Ventolin Hfa 1 - 2 puffs INH Q4HR PRN #1 inhaler 07/23/21 Inhaler] Doxycycline Hyclate 100 mg PO BID #14 tab.sr 07/23/21 Paliperidone Palmitate [Invega 07/23/21 Trinza] guaiFENesin/CODEINE [Robitussin AC] 5 - 10 ml PO Q6H PRN #120 ml 07/23/21 Doxycycline Hyclate 100 mg PO BID #14 cap 01/12/22 Amox/Clav 875/125 [Augmentin] 1 each PO Q12H #20 tablet 04/17/22 Ibuprofen [Motrin] 800 mg PO Q8H PRN #30 tablet 04/17/22 Ofloxacin [Ofloxacin Otic drops] 5 drops OT BID #10 ml 04/17/22 Oxycodone HCl/Acetaminophen 1 - 2 each PO Q6H PRN #10 tablet 04/17/22 [Percocet 5-325 mg Tablet] Neomycin/Polymyx/Hc Otic Drops 4 drops EACHEAR TID #10 ml 04/19/22 [Cortisporin Ear Susp] - Allergies Allergies/Adverse Reactions: Allergies Allergy/AdvReac Type Severity Reaction Status Date / Time No Known Drug Allergies Allergy Verified 04/19/22 19:33 - Social History Does the pt smoke?: Yes Smoking Status: Current every day smoker Does the pt drink ETOH?: No Does the pt have substance abuse?: Yes - Immunizations Immunizations are current?: Yes - POLST Patient has POLST: No PD ED PE NORMAL - Vitals Vital signs reviewed: Yes - General General: Alert and oriented X 3, No acute distress, Well developed/nourished - HEENT HEENT: Atraumatic, PERRL, EOMI, Other (BL otitis externa. L ext auditory canal swollen shut. no trismus, no temporal bone ttp) - Neck Neck: Supple, no meningeal sign Results - Vitals Vitals: Vital Signs - 24 hr 04/19/22 19:32 Temperature 36.8 C Heart Rate 94 Respiratory 15 Rate Blood Pressure 143/72 H O2 Saturation 95 Oxygen O2 Source Room air PD Medical Decision Making - ED course ED course: Patient presents again for ear wick placement after it fell out since last night. nontoxic appearing, no signs of mastoiditis. plan to c/w antibiotics. f/u with pcp. return precautions given. Departure - Departure Disposition: 01 Home, Self Care Clinical Impression: Otitis externa Condition: Good Instructions: ED Otitis Externa Comments: You were seen in the ED for ear infection and an ear wick was placed. Please follow up with your primary care provider. Return to the ED for new or worsening symptoms or if you have other concerns. Continue your ear drops/medicine as prescribed.
== END 2022-04-19 20:44 | disposition home or self-care (01) ==
LOC: ED 19:23
DX: H60.92 Unspecified otitis externa, left ear (principal); F17.200 Nicotine dependence, unspecified, uncomplicated; H61.392 Other acquired stenosis of left external ear canal; H66.92 Otitis media, unspecified, left ear
CPT/HCPCS: 96372; 99281; 99282; 99283; A9270

== ENCOUNTER 2022-04-20 15:32 | Emergency (ER) | payer MEDICAID ==
[2022-04-20 15:42] VITALS: BP 146/90
--- NOTE | 2022-04-20 15:50 | ED Physician Documentation ---
PD HPI HEENT - Stated complaint Stated Complaint: EAR PX - Chief complaint Chief Complaint: Heent - History obtained from History obtained from: Patient - Additional information Additional information: Originally seen a few nights ago for otitis, started both on topical and systemic treatment. The next night had an ear wick placed which subsequently fell out and was replaced last night. Now he feels like the ear wick is swollen and the drops are not going in. Review of Systems Constitutional: reports: Reviewed and negative Ears: reports: Ear pain Nose: reports: Reviewed and negative PD PAST MEDICAL HISTORY - Past Medical History Cardiovascular: None Respiratory: None, Sleep apnea Neuro: None Endocrine/Autoimmune: None GI: None : None HEENT: None Psych: Depression, Anxiety, Bipolar disorder Musculoskeletal: None Derm: None - Past Surgical History Past Surgical History: Yes HEENT: Tonsil/Adenoidectomy - Present Medications Home Medications: Ambulatory Orders Medication Instructions Recorded Confirmed Albuterol Sulf [Ventolin Hfa 1 - 2 puffs INH Q4HR PRN #1 inhaler 07/23/21 Inhaler] Doxycycline Hyclate 100 mg PO BID #14 tab.sr 07/23/21 Paliperidone Palmitate [Invega 07/23/21 Trinza] guaiFENesin/CODEINE [Robitussin AC] 5 - 10 ml PO Q6H PRN #120 ml 07/23/21 Doxycycline Hyclate 100 mg PO BID #14 cap 01/12/22 Amox/Clav 875/125 [Augmentin] 1 each PO Q12H #20 tablet 04/17/22 Ibuprofen [Motrin] 800 mg PO Q8H PRN #30 tablet 04/17/22 Ofloxacin [Ofloxacin Otic drops] 5 drops OT BID #10 ml 04/17/22 Oxycodone HCl/Acetaminophen 1 - 2 each PO Q6H PRN #10 tablet 04/17/22 [Percocet 5-325 mg Tablet] Neomycin/Polymyx/Hc Otic Drops 4 drops EACHEAR TID #10 ml 04/19/22 [Cortisporin Ear Susp] Oxycodone HCl/Acetaminophen 1 - 2 each PO Q6H PRN #14 tablet 04/20/22 [Percocet 5-325 mg Tablet] - Allergies Allergies/Adverse Reactions: Allergies Allergy/AdvReac Type Severity Reaction Status Date / Time No Known Drug Allergies Allergy Verified 04/20/22 15:42 - Social History Does the pt smoke?: Yes Smoking Status: Current every day smoker Does the pt drink ETOH?: No Does the pt have substance abuse?: Yes - Immunizations Immunizations are current?: Yes - POLST Patient has POLST: No PD ED PE NORMAL - Vitals Vital signs reviewed: Yes - General General: Alert and oriented X 3, No acute distress - HEENT HEENT: Other (The ear wick was saturated with fluid, after removal he felt much better and I was able to see the TM suggesting no further need for the ear wick.) - Neck Neck: Supple, no meningeal sign, No bony TTP - Neuro Neuro: Alert and oriented X 3, Normal speech Results - Vitals Vitals: Vital Signs - 24 hr 04/20/22 15:38 Temperature 36.1 C L Heart Rate 103 H Respiratory 18 Rate Blood Pressure 146/90 H O2 Saturation 95 Oxygen O2 Source Room air Departure - Departure Disposition: 01 Home, Self Care Clinical Impression: Otitis media Qualifiers: Otitis media type: suppurative Chronicity: acute Laterality: left Recurrence: recurrent Spontaneous tympanic membrane rupture: with spontaneous rupture Qualified Code(s): H66.015 - Acute suppurative otitis media with spontaneous rupture of ear drum, recurrent, left ear Condition: Good Record reviewed to determine appropriate education?: Yes Instructions: ED Otitis Media Acute Adult Prescriptions: Oxycodone HCl/Acetaminophen [Percocet 5-325 mg Tablet] 1 - 2 each PO Q6H PRN #14 tablet PRN Reason: pain Comments: I sent your prescription to [facility] in [place], continue current antibiotics both oral and in the ear. Reasonable follow-up with ENT specialist, phone numbers [phone], call tomorrow for next billable appointment. Return if worse. I am prescribing a short course of narcotic pain medication for you. These are potentially dangerous and addictive medications that should be used carefully. These medications may constipate you. Take an [id number] stool softener (docusate) twice daily with plenty of water while taking these medications. If you go 24 hours without a bowel movement, take [id number] miralax, per package instructions. Do not drink or drive while taking these medications. If you received narcotic or sedating medications while in the emergency department, do not drive for 24 hours. Store this medication in a safe, secure place and out of reach of children. It is a violation of federal law to give or sell this medication to another person or to use in a manner other than prescribed. The ED will not refill narcotic prescriptions, including prescriptions lost or stolen. To dispose of unwanted medications: 1. [facility] [address] in [place] has a medication drop box. They accept prescription medications (in pill form) Tuesday through Tuesday 9:00 a.m. to 5:00 p.m. 2. The [facility] accepts prescription medications (in pill form only) for disposal year round. Call for more information. 3. Contact the [facility] for the next [facility] sponsored prescription drug collection event. , [phone], or [phone]; Note that many narcotic pain relievers also contain Tylenol/acetaminophen. Please ensure that your total dose of acetaminophen from all sources does not exceed 3 g (3000 mg) per day.
== END 2022-04-20 15:54 | disposition home or self-care (01) ==
LOC: ED 15:32
DX: H66.015 Acute suppurative otitis media with spontaneous rupture of ear drum, recurrent, left ear (principal); F17.200 Nicotine dependence, unspecified, uncomplicated
CPT/HCPCS: 99282

== ENCOUNTER 2022-04-23 16:14 | Emergency (ER) | payer MEDICAID ==
[2022-04-23 16:21] VITALS: BP 144/122
--- NOTE | 2022-04-23 16:43 | ED Physician Documentation ---
History of Present Illness - Stated complaint Stated Complaint: 2X EAR INFECTION - Chief complaint Chief Complaint: Heent - Additonal information Additional information: 31-year-old male presents to the emergency department requesting a refill of his oxycodone. He has been seen now 4 times in this emergency department since the . He has received a prescription for Cortisporin and when that failed to resolve the pain and infection was started on Augmentin. He has received 2 prescriptions for oxycodone; one rx totaling 10 tablets the other 14. He is also received 2 prepacks from the emergency department for additional volume of 8 tablets. Patient reports that he is taking the oxycodone every 4 hours. He states Tylenol and ibuprofen are not working. He has had no further fevers. He reports compliance with the antibiotics. States he is trying to get in with primary care doctor to obtain referral to ENT. He is got no cough. Appears rather well but smells heavily of cannabis Review of Systems Constitutional: reports: Fever Ears: reports: Ear pain, Drainage/discharge Nose: reports: Rhinorrhea / runny nose Throat: reports: Reviewed and negative Cardiac: reports: Reviewed and negative PD PAST MEDICAL HISTORY - Past Medical History Cardiovascular: None Respiratory: None, Sleep apnea Neuro: None Endocrine/Autoimmune: None GI: None : None HEENT: None Psych: Depression, Anxiety, Bipolar disorder Musculoskeletal: None Derm: None - Past Surgical History Past Surgical History: Yes HEENT: Tonsil/Adenoidectomy - Present Medications Home Medications: Ambulatory Orders Medication Instructions Recorded Confirmed Albuterol Sulf [Ventolin Hfa 1 - 2 puffs INH Q4HR PRN #1 inhaler 07/23/21 Inhaler] Doxycycline Hyclate 100 mg PO BID #14 tab.sr 07/23/21 Paliperidone Palmitate [Invega 07/23/21 Trinza] guaiFENesin/CODEINE [Robitussin AC] 5 - 10 ml PO Q6H PRN #120 ml 07/23/21 Doxycycline Hyclate 100 mg PO BID #14 cap 01/12/22 Amox/Clav 875/125 [Augmentin] 1 each PO Q12H #20 tablet 04/17/22 Ibuprofen [Motrin] 800 mg PO Q8H PRN #30 tablet 04/17/22 Ofloxacin [Ofloxacin Otic drops] 5 drops OT BID #10 ml 04/17/22 Oxycodone HCl/Acetaminophen 1 - 2 each PO Q6H PRN #10 tablet 04/17/22 [Percocet 5-325 mg Tablet] Neomycin/Polymyx/Hc Otic Drops 4 drops EACHEAR TID #10 ml 04/19/22 [Cortisporin Ear Susp] Oxycodone HCl/Acetaminophen 1 - 2 each PO Q6H PRN #14 tablet 04/20/22 [Percocet 5-325 mg Tablet] - Allergies Allergies/Adverse Reactions: Allergies Allergy/AdvReac Type Severity Reaction Status Date / Time No Known Drug Allergies Allergy Verified 04/23/22 16:20 - Social History Does the pt smoke?: Yes Smoking Status: Current every day smoker Does the pt drink ETOH?: No Does the pt have substance abuse?: Yes - Immunizations Immunizations are current?: Yes - POLST Patient has POLST: No PD ED PE NORMAL - General General: Alert and oriented X 3, Well developed/nourished (Obese), Other (Disheveled poorly kept. Smells heavily of cannabis) - HEENT HEENT: Atraumatic, PERRL, EOMI, Moist mucous membranes. No: Ears normal (Both TMs are visible. Serous fluid in both ear canals. Mild erythema of both TMs but no effusion. Both intact.) - Neck Neck: Supple, no meningeal sign, No adenopathy Results - Vitals Vitals: Vital Signs - 24 hr 04/23/22 16:16 Temperature 36.3 C L Heart Rate 101 H Respiratory 18 Rate Blood Pressure 144/122 H O2 Saturation 94 Oxygen O2 Source Room air PD Medical Decision Making - ED course Complexity details: considered differential, d/w patient ED course: 31-year-old male who is recently been diagnosed with bilateral otitis externa that failed to respond to Cortisporin therefore he was started on Augmentin who presents to the emergency department requesting a refill of oxycodone. I do not feel it is appropriate to represcribe the oxycodone at this time. I am concerned about overuse and/or abuse. He continues to have otitis externa which I believe is resolving given the lack of perforation of the TM and no effusion behind the ears. We discussed that I would not change the antibiotics unless he had antibiotic failure after 10 days of treatment. I encouraged Tylenol, ibuprofen as well as warm compress. Patient clinically appears well though disheveled and poorly kept. He does not have clinical findings to suggest malignant otitis externa. No mastoid tenderness was elicited and without effusion behind the eardrum I have low suspicion for mastoiditis.. The patient cussed at me and walked out of the emergency department without receiving his paperwork. Departure - Departure Disposition: 01 Home, Self Care Clinical Impression: Acute pain of both ears Condition: Stable Record reviewed to determine appropriate education?: Yes Comments: Christiano it is important that you continue to finish the full course of Augmentin and Cortisporin drops that were prescribed recently. Unfortunately we are not able to refill your oxycodone. I do recommend you take 500 mg of Tylenol or alternate with 600 mg of Motrin 2-3 times a day. A warm compress of your ear can also be helpful. Very important you follow closely with a primary care doctor as you likely will need referral to an ear nose throat doctor.
--- OUTSIDE RECORDS SUMMARY | 2022-04-23 16:58 | EXTERNAL MEDICAL SUMMARY RPT | Continuity of Care Document ---
:1990 Author Organization [facility] Address [address] [place] [address] Phone Care Team Providers Name Role Phone Christiano Aranda Unavailable Unavailable Allergies No information. Encounters No information. Functional Status No information. Immunizations No information. Medications No information. Problems No information. Procedures date description facility 2022-03-29 00:00 XR hand right, 3+ views [facility] l Results/Labs test date author facility value unit interpret ation Result panel 1 (unknown) (no (unknown) (unknown) (no value) (units (unk nown) date) unknown) (unknown) (no (unknown) (unknown) [id number] (units (unkno wn) date) unknown) (unknown) (no (unknown) (unknown) 1 week prior to (units (unknown) date) pain starting he unknown) did use a chain saw that had a lot of (unknown) (no (unknown) (unknown) 03/29/22 (units (unkno wn) date) unknown) (unknown) (no (unknown) (unknown) 15:40 (units (unkno wn) date) unknown) (unknown) (no (unknown) (unknown) Age/Sex: 31 / M (units (unknown) date) Date of Service: unknown) (unknown) (no (unknown) (unknown) Allergies (units (unkn own) date) unknown) (unknown) (no (unknown) (unknown) [facility] (units (unknown) date) Medicine unknown) (unknown) (no (unknown) (unknown) [facility] [place] (units ( unknown) date) [id number] unknown) (unknown) (no (unknown) (unknown) Attending Dr: (units ( unknown) date) Sofia Hussein unknown) [employer] (unknown) (no (unknown) (unknown) BMI 45.8 (units (unkno wn) date) unknown) (unknown) (no (unknown) (unknown) BP 120/80 (units (unkn own) date) unknown) (unknown) (no (unknown) (unknown) Bipolar 1 (units (unkn own) date) disorder unknown) (unknown) (no (unknown) (unknown) Blood Pressure (units (unknown) date) Location Lt unknown) brachial (unknown) (no (unknown) (unknown) Cannabinoid (units (un known) date) hyperemesis unknown) syndrome (-2018) (unknown) (no (unknown) (unknown) Chief Complaint (units (unknown) date) unknown) (unknown) (no (unknown) (unknown) Chief Complaint: (units (unknown) date) Right hand pain unknown) (unknown) (no (unknown) (unknown) : 1990 (units (unknown) date) Acct:[id number] unknown) (unknown) (no (unknown) (unknown) Dept at (units (unkno wn) date) . unknown) (unknown) (no (unknown) (unknown) Details: (units (unkno wn) date) unknown) (unknown) (no (unknown) (unknown) Documented By: (units (unknown) date) Sofia Hussein unknown) [facility] 03/29/22 1436 (unknown) (no (unknown) (unknown) Draft (units (unkno wn) date) unknown) (unknown) (no (unknown) (unknown) Family Practice (units (unknown) date) Office Visit unknown) (unknown) (no (unknown) (unknown) Getting more (units (u nknown) date) painful unknown) (unknown) (no (unknown) (unknown) HPI (units (unkno wn) date) unknown) (unknown) (no (unknown) (unknown) Height 6 ft (units (un known) date) unknown) (unknown) (no (unknown) (unknown) History of (units (unk nown) date) fracture of left unknown) ankle (unknown) (no (unknown) (unknown) History of (units (unk nown) date) tonsillectomy and unknown) adenoidectomy (unknown) (no (unknown) (unknown) Intake Note: (units (u nknown) date) unknown) (unknown) (no (unknown) (unknown) Intake performed (units (unknown) date) by: unknown) Terry Schaffer (unknown) (no (unknown) (unknown) Intake (units (unkno wn) date) unknown) (unknown) (no (unknown) (unknown) Intake- Clincial (units (unknown) date) Staff unknown) (unknown) (no (unknown) (unknown) Left ankle (units (unk nown) date) sprain (02/21/18) unknown) (unknown) (no (unknown) (unknown) Loc: [facility] (units (unkno wn) date) unknown) (unknown) (no (unknown) (unknown) Medical History (units (unknown) date) (Reviewed unknown) 09/17/21 @ 15:04 by Yuniel Perkins MD) (unknown) (no (unknown) (unknown) Medications (units (un known) date) unknown) (unknown) (no (unknown) (unknown) No Known Drug (units ( unknown) date) Allergies Allergy unknown) (Verified 03/29/22 15:37) (unknown) (no (unknown) (unknown) No Known Home (units ( unknown) date) Medications unknown) 09/17/21 [History Confirmed 03/29/22] (unknown) (no (unknown) (unknown) JESSIE on CPAP (units (un known) date) unknown) (unknown) (no (unknown) (unknown) Oxygen Delivery (units (unknown) date) Method room air unknown) (unknown) (no (unknown) (unknown) PFSH (units (unkno wn) date) unknown) (unknown) (no (unknown) (unknown) Patient presents (units (unknown) date) to walk-in clinic unknown) with complaints of pain at base of thumb and (unknown) (no (unknown) (unknown) Patient: (units (unkno wn) date) Christiano Salcedo unknown) MR#: [id number] (unknown) (no (unknown) (unknown) Position Sitting (units (unknown) date) unknown) (unknown) (no (unknown) (unknown) Pt presents with (units (unknown) date) painful hand. Has unknown) a raised half [place]. Started 3 weeks ago. (unknown) (no (unknown) (unknown) Pulse 77 (units (unkno wn) date) unknown) (unknown) (no (unknown) (unknown) Pulse Oximetry (units (unknown) date) (%) 99 unknown) (unknown) (no (unknown) (unknown) Pulse Source (units (u nknown) date) Monitor unknown) (unknown) (no (unknown) (unknown) Reason For Visit (units (unknown) date) unknown) (unknown) (no (unknown) (unknown) Respiration 16 (units (unknown) date) unknown) (unknown) (no (unknown) (unknown) Signed By: (units (unk nown) date) unknown) (unknown) (no (unknown) (unknown) Smoking Status: (units (unknown) date) Current every day unknown) smoker (unknown) (no (unknown) (unknown) Social History (units (unknown) date) unknown) (unknown) (no (unknown) (unknown) Surgical History (units (unknown) date) (Reviewed unknown) 09/17/21 @ 15:04 by Yuniel Perkins MD) (unknown) (no (unknown) (unknown) Temp 97.3 F L (units ( unknown) date) unknown) (unknown) (no (unknown) (unknown) Temp Source Skin (units (unknown) date) unknown) (unknown) (no (unknown) (unknown) This note may (units ( unknown) date) have been all or unknown) partially generated using voice recognition (unknown) (no (unknown) (unknown) Tobacco + (units (unkn own) date) Substance Use unknown) (unknown) (no (unknown) (unknown) Tobacco Status (units (unknown) date) unknown) (unknown) (no (unknown) (unknown) Visit Reasons: (units (unknown) date) issue with right unknown) palm of hand by thumb (unknown) (no (unknown) (unknown) Vitals (units (unkno wn) date) unknown) (unknown) (no (unknown) (unknown) Weight 338 lb 8 (units (unknown) date) oz unknown) (unknown) (no (unknown) (unknown) have occurred. (units (unknown) date) If there are any unknown) questions, please contact the Medical Records (unknown) (no (unknown) (unknown) household (units (unkn own) date) members: spouse unknown) (unknown) (no (unknown) (unknown) may occur. (units (unk nown) date) Occasional unknown) wrong-word or 'sound-alike' substitutions may have (unknown) (no (unknown) (unknown) occurred due to (units (unknown) date) the inherent unknown) limitations of voice recognition software. Please (unknown) (no (unknown) (unknown) read the note (units ( unknown) date) carefully and unknown) recognize, using context, where these substitutions (unknown) (no (unknown) (unknown) right hand for (units (unknown) date) the last 3 weeks. unknown) Patient states that he is left-hand dominant. (unknown) (no (unknown) (unknown) software. (units (unkn own) date) Although every unknown) effort is made to edit content, rn clinician errors (unknown) (no (unknown) (unknown) that if he (units (unk nown) date) pushes down on unknown) the area it is painful (unknown) (no (unknown) (unknown) vibration. Other (units (unknown) date) than that there unknown) is no unusual, activity noted. Patient states Result panel 2 (unknown) (no date) (unknown) (unknown) (no value) (units (un known) unknown) (unknown) (no date) (unknown) (unknown) [id number] (units (unkn own) unknown) (unknown) (no date) (unknown) (unknown) 03/29/22 (units (unkn own) unknown) (unknown) (no date) (unknown) (unknown) [id number] (units (unk nown) Street unknown) (unknown) (no date) (unknown) (unknown) Accession (units (unk nown) Number: unknown) [id number] (unknown) (no date) (unknown) (unknown) Age/Sex: 31 (units (unknown) M Date of unknown) Service: (unknown) (no date) (unknown) (unknown) [place] (units (unknown) [id number] unknown) (unknown) (no date) (unknown) (unknown) Approved by: (units ( unknown) alfonso Bain M.D. on 03/29/2022 at 18:45 (unknown) (no date) (unknown) (unknown) Bones: No (units (unk nown) fractures or unknown) dislocations. Carpal bones are normally aligned. No (unknown) (no date) (unknown) (unknown) COMPARISON: (units (u nknown) None. unknown) (unknown) (no date) (unknown) (unknown) : (units (unkn own) 1990 unknown) Acct:[id number] (unknown) (no date) (unknown) (unknown) Dictated by: (units ( unknown) Arun Davidson unknown) Gal on 03/29/2022 at 18:43 (unknown) (no date) (unknown) (unknown) FINDINGS: (units (unk nown) unknown) (unknown) (no date) (unknown) (unknown) IMPRESSION: No (units (unknown) acute osseous unknown) abnormality. If symptoms persist, follow-up (unknown) (no date) (unknown) (unknown) INDICATIONS: (units ( unknown) Hand pain unknown) (unknown) (no date) (unknown) (unknown) [facility] (unknown) (no date) (unknown) (unknown) Loc: RAD (units (unkn own) unknown) (unknown) (no date) (unknown) (unknown) Ordering (units (unkn own) Provider: unknown) Sofia Hussein (unknown) (no date) (unknown) (unknown) PROCEDURE: XR (units (unknown) HAND RT MIN 3V unknown) (unknown) (no date) (unknown) (unknown) Patient: (units (unkn own) Christiano Salcedo unknown) MR#: [id number] (unknown) (no date) (unknown) (unknown) Procedure: XR (units (unknown) hand RT min 3V unknown) (unknown) (no date) (unknown) (unknown) Signed (units (unkn own) unknown) (unknown) (no date) (unknown) (unknown) Soft tissues: (units (unknown) No suspicious unknown) soft tissue calcifications. (unknown) (no date) (unknown) (unknown) TECHNIQUE: 3 (units ( unknown) views of the unknown) hand(s) acquired. (unknown) (no date) (unknown) (unknown) XRay Report (units (u nknown) unknown) (unknown) (no date) (unknown) (unknown) and/or CT or (units ( unknown) MRI may be unknown) helpful for further evaluation. (unknown) (no date) (unknown) (unknown) bony lesions. (units (unknown) unknown) (unknown) (no date) (unknown) (unknown) radiographs (units (u nknown) unknown) (unknown) (no date) (unknown) (unknown) suspicious (units (un known) unknown) Social History date description facility 2022-03-29 00:00 Smokes tobacco daily (finding) [facility] Vital Signs date measurement value units 2022-03-29 00:00 BMI 45.8 kg/m2 2022-03-29 00:00 BP_diastolic 80 mmHg 2022-03-29 00:00 BP_systolic 120 mmHg 2022-03-29 00:00 heart_rate 77 /min 2022-03-29 00:00 height_metric 182.88 cm 2022-03-29 00:00 height_standard 72 in 2022-03-29 00:00 o2_saturation 99 % 2022-03-29 00:00 respiration_rate 16 /min 2022-03-29 00:00 temperature_metric 36.28 C 2022-03-29 00:00 temperature_standard 97.3 F 2022-03-29 00:00 weight_metric 153.54 kg 2022-03-29 00:00 weight_standard 338.5 lb
== END 2022-04-23 16:46 | disposition home or self-care (01) ==
LOC: ED 16:14
DX: Z76.0 Encounter for issue of repeat prescription (principal); H92.03 Otalgia, bilateral; F17.200 Nicotine dependence, unspecified, uncomplicated
CPT/HCPCS: 99281; 99282

== ENCOUNTER 2022-05-15 20:23 | Emergency (ER) | payer MEDICAID ==
--- NOTE | 2022-05-15 21:39 | ED Physician Documentation ---
History of Present Illness - Stated complaint Stated Complaint: VOMITING/ANXIETY - Chief complaint Chief Complaint: Abd Pain - Additonal information Additional information: Patient is a 31-year-old male presenting to the emergency department with nausea, vomiting and anxiety. Reports has been feeling extremely anxious for the last several days. States that when he thinks about the many things he has to do at this time it makes him nauseous and he has been having vomiting at home. He denies suicidal or homicidal ideation. Denies abdominal pain. Review of Systems GI: reports: Nausea, Vomiting Psychiatric: reports: Anxiety PD PAST MEDICAL HISTORY - Past Medical History Past Medical History: Yes Cardiovascular: None Respiratory: None, Sleep apnea Neuro: None Endocrine/Autoimmune: None GI: None : None HEENT: None Psych: Depression, Anxiety, Bipolar disorder Musculoskeletal: None Derm: None - Past Surgical History Past Surgical History: Yes HEENT: Tonsil/Adenoidectomy - Present Medications Home Medications: Ambulatory Orders Medication Instructions Recorded Confirmed Paliperidone Palmitate [Invega 1 infus.set IM 05/15/22 Trinza] Prochlorperazine Maleate 10 mg PO Q4HR PRN #30 tab 05/15/22 [Compazine] hydrOXYzine HCL [Hydroxyzine HCl] 50 mg PO TID #30 tablet 05/15/22 - Allergies Allergies/Adverse Reactions: Allergies Allergy/AdvReac Type Severity Reaction Status Date / Time No Known Drug Allergies Allergy Verified 05/15/22 20:29 - Social History Does the pt smoke?: Yes Smoking Status: Current every day smoker Does the pt drink ETOH?: No Does the pt have substance abuse?: Yes Substance Use and Type: Marijuana - Immunizations Immunizations are current?: No Immunizations: TDAP current <10years, Other immun not current - POLST Patient has POLST: No PD ED PE NORMAL - Vitals Vital signs reviewed: Yes (HTN) - General General: Alert and oriented X 3, No acute distress, Well developed/nourished - HEENT HEENT: Atraumatic - Neck Neck: Supple, no meningeal sign - Cardiac Cardiac: RRR - Respiratory Respiratory: No respiratory distress - Abdomen Abdomen: Normal bowel sounds, Soft, Non tender, Non distended, No organomegaly Results - Vitals Vitals: Vital Signs - 24 hr 05/15/22 05/15/22 20:29 21:44 Temperature 37.1 C 36.6 C Heart Rate 88 79 Respiratory 16 16 Rate Blood Pressure 160/80 H 139/77 H O2 Saturation 97 96 Oxygen O2 Source Room air PD Medical Decision Making - ED course Complexity details: re-evaluated patient, d/w patient Reviewed Lab Results: None Drug Therapy Requiring Monitoring for Toxicity: Patient given p.o. Ativan and Compazine ED course: Patient 31-year-old male presenting to the emergency department with chief complaints of anxiety, nausea and vomiting. Afebrile, he medically stable on arrival to the emergency department. Patient is mildly hypertensive with known history of essential hypertension as well as a history of poor compliance with his antihypertensives. No indications hypertensive emergency. His abdominal exam is benign. He was offered blood work in the emergency department which was declined. He was given dose Compazine and single dose of Ativan to help with his symptoms. He reported significant improvement. Will discharge at this time for follow-up with primary care as needed. Clear return precautions given prior to discharge. Clinical impression: Anxiety, nausea and vomiting. Departure - Departure Disposition: Home, Self Care Clinical Impression: Anxiety Nausea and vomiting Qualifiers: Vomiting type: unspecified Qualified Code(s): R11.2 - Nausea with vomiting, unspecified Instructions: ED Panic Attack, ED Nausea Vomiting Prescriptions: Prochlorperazine Maleate [Compazine] 10 mg PO Q4HR PRN #30 tab PRN Reason: Nausea / Vomiting hydrOXYzine HCL [Hydroxyzine HCl] 50 mg PO TID #30 tablet Comments: Thank you for allowing us to care for you today at [facility]. I have sent some medications to help with both nausea and anxiety to your preferred pharmacy, [facility]. Please follow-up with your primary care doctor soon as possible. If it anytime you have new or worsening symptoms please not hesitate to return. Discharge Date/Time: 05/15/22 22:09
[2022-05-15] MEDS ORDERED: PROCHLORPERAZINE 5 MG TABLET PO STA (21:43)
[2022-05-15] MEDS ORDERED: diazePAM 5 MG TABLET PO STA (21:44)
[2022-05-15 21:45] VITALS: BP 139/77
== END 2022-05-15 22:09 | disposition home or self-care (01) ==
LOC: ED 20:23
DX: F41.9 Anxiety disorder, unspecified (principal); R11.2 Nausea with vomiting, unspecified; I10 Essential (primary) hypertension; Z91.14 Patient's other noncompliance with medication regimen; F17.200 Nicotine dependence, unspecified, uncomplicated
CPT/HCPCS: 99282; 99284; A9270

== ENCOUNTER 2022-06-08 15:15 | Outpatient (CLI) | payer MEDICAID ==
[2022-06-08 15:43] VITALS: BP 126/74
--- NOTE | 2022-06-08 15:43 | SLEEP CARE CONSULTATION ---
Information from patient questionnaire entered by Milka Mcdermott. I have reviewed and concur with the information entered by Milka Mcdermott. This document represents the service I personally performed and the decisions made by , Cecy Rogers ARNP. History of Present Illness Service Date and Time: 06/08/2022 1515 Previous diagnosis: Very Severe, Obstructive Sleep Apnea-Hypopnea Syndrome AHI: 79.4 (in 2010) Reason for follow up: annual (LAST SEEN 12/2020) Equipment type: BiPAP (MAY Dreamstation BIPAP, replaced by Nick; s/u 11/2018) Equipment obtained from: Other (does not have a supplier) Mask style: Full face (hybrid mask) Backup mask available: No (will keep old mask when replaced) Last cushion change: 3-4 months Prior sleep studies: Yes Year and Where: 2010 - [facility] Type of Sleep Study: Polysomnography HPI additional information: CHRISTIANO SALCEOD was diagnosed to have very severe, AHI 79.4, obstructive sleep apnea-hypopnea syndrome and returned today for BIPAP therapy annual follow-up. Sleep Study - Results Type of Sleep Study: Polysomnography Prior sleep studies: Yes Year and Where: 2010 - [facility] CPAP Compliance Data - Data Reviewed with Patient Average duration of nightly device use: 8 HRS 43 MIN 16SEC Compliance rate %: 97.2 (12/08/21-06/05/22; 180/180 days used) Current pressure setting (cmH2O): 15/10 Average residual AHI: 0.5 Central apnea: 0.1 Obstructive apnea: 0.1 Hypopnea: 0.3 Average large leak: 3 mins 12 secs Subjective Patient concerns: reports: mask leak noise (once in a while). denies: aerophagia, mask discomfort, air blowing in eyes, condensation in mask/hose, nasal congestion, dry mouth, nose, throat, epistaxis Observed to snore while using device: No Current pressure setting perceived as: comfortable On therapy, patient: reports: sleeping better, awakening more refreshed, being more awake and alert during the day, more rested overall. denies: drowsiness while driving Initial [place] Sleepiness Scale score: 15 (in 2010) Current [place] Sleepiness Scale score: 5 (06/08/2022) Allergies and Home Medications Drug allergies reviewed: Yes (NKDA) Home medication list reviewed: Yes (Invega Trinza Injection every 3 months for bipolar) Review of Systems Review of systems same as previous: Yes (no changes) Physical Exam Vital signs obtained and entered by: MILKA Leon MA Blood Pressure: 126/74 (LEFT ARM ) Cuff size: regular Heart Rate: 85 O2 Saturation: 96 Height: 6 ft Weight: 331 lb 6.4 oz Body Mass Index: 44.9 BMI Classification: Morbidly Obese Impression and Plan 1. Obstructive Sleep Apnea-Hypopnea Syndrome, very severe, with good treatment compliance and good apnea control. On BIPAP therapy, the patient has better sleep quality and is more rested overall. Christiano would like to be able to get supplies and he does not have a DME currently. Patient was informed that another DME can be used. I will have my service coordinator elderly facility inform of DME options. A DWO prescription will then be made. Patient advised to contact this office if further supply problems. Patient has significant improvement of their sleep apnea and are satisfied with current CPAP therapy. The patient was discharged in stable condition with instructions, including return instructions and follow up instructions. Patient's apnea severity and rationale for treatment to reduce apnea, improve sleep quality and reduce cardiovascular and cerebrovascular events was reviewed. I also reviewed the benefit of consistent device use of BIPAP for hypertension and depression. 2. Obesity, unspecified. Currently patients BMI is 44.9. Obesity increases the risk of apnea, BIPAP pressure requirements and overall health risks especially cardiovascular and diabetes. Thus patient is advised to lose weight. * Continue BIPAP pressure at 15/10 cmH2O * Transfer DME * Update supplies * Notify me if snoring with mask or feeling that the pressure is too much or too little * Attempt to lose weight * Call this office if any problems using BIPAP * Return for follow up in 1 year, or sooner if concerns arise Counseling Topics: Spare mask, Weight loss health impact Prescriptions: Device supplies Visit Type: In Office Time Spent with Patient (minutes): 20 Provider Statement: I spent 100% of the Face to Face Visit with the patient with greater than 50% spent counseling the patient and coordination of care.
== END 2022-06-08 15:16 | disposition home or self-care (01) ==
LOC: SC 15:15
PROVIDERS: ATTEND Nurse Practitioner Family
DX: G47.33 Obstructive sleep apnea (adult) (pediatric) (principal); E66.01 Morbid (severe) obesity due to excess calories; Z68.41 Body mass index [BMI] 40.0-44.9, adult
CPT/HCPCS: 99212; 99213

== ENCOUNTER 2023-03-03 15:35 | Emergency (ER) | payer MEDICAID ==
[2023-03-03] MEDS ORDERED: DROPERIDOL 5 MG/2 ML VIAL IVP STA (16:06)
[2023-03-03] MEDS ORDERED: LORazepam 2 MG/ML VIAL IVP STA (16:06)
--- NOTE | 2023-03-03 16:09 | ED Physician Documentation ---
PD HPI MHE - Stated complaint Stated Complaint: PANIC ATTACK/SOA - Chief complaint Chief Complaint: MHE - History obtained from History obtained from: Patient (32-year-old gentleman with history of psychiatric disorder on monthly Invega presents with panic attack causing vomiting starting just prior to arrival after he broke up with his "old lady." No SI or HI.) PD PAST MEDICAL HISTORY - Past Medical History Cardiovascular: None Respiratory: None, Sleep apnea Neuro: None Endocrine/Autoimmune: None GI: None : None HEENT: None Psych: Depression, Anxiety, Bipolar disorder Musculoskeletal: None Derm: None - Past Surgical History Past Surgical History: Yes HEENT: Tonsil/Adenoidectomy - Present Medications Home Medications: Ambulatory Orders Medication Instructions Recorded Confirmed Paliperidone Palmitate [Invega See Rx Instructions .ROUTE .COMPLEX 06/08/22 06/08/22 Trinza] Diclofenac Sodium 1% Gel [Voltaren 2 gm TOP QID 7 Days #1 each 11/20/22 Gel] methocarbamoL [Robaxin] 500 mg PO Q6H #20 tablet 11/20/22 LORazepam [Ativan] 1 mg PO TID PRN #7 tablet 03/03/23 - Allergies Allergies/Adverse Reactions: Allergies Allergy/AdvReac Type Severity Reaction Status Date / Time No Known Drug Allergies Allergy Verified 03/03/23 15:48 - Social History Does the pt smoke?: Yes Smoking Status: Current every day smoker Does the pt drink ETOH?: No Does the pt have substance abuse?: Yes - Immunizations Immunizations are current?: No Immunizations: TDAP current <10years, Other immun not current - POLST Patient has POLST: No PD ED PE NORMAL - Vitals Vital signs reviewed: Yes - General General: Alert and oriented X 3, Other (Actively retching and vomiting and very diaphoretic) - HEENT HEENT: PERRL, EOMI - Neck Neck: Supple, no meningeal sign, No bony TTP - Cardiac Cardiac: RRR, No murmur - Respiratory Respiratory: No respiratory distress, Clear bilaterally - Abdomen Abdomen: Non tender - Neuro Neuro: Alert and oriented X 3, Normal speech Results - Vitals Vitals: Vital Signs - 24 hr 03/03/23 15:41 Temperature 36.2 C L Heart Rate 97 Respiratory 26 H Rate Blood Pressure 119/70 O2 Saturation 100 Oxygen O2 Source Room air - EKG (time done) 1549 EKG releavant findings:: EKG personally interpreted by author of this note. Relevant findings are: Rate: Rate (enter#) (90) Rhythm: NSR [place]: Normal Intervals: Normal [place] QRS: Normal Ischemia: Normal ST segments PD Medical Decision Making - ED course ED course: 32-year-old gentleman with panic attack related to recent break-up with a lot of vomiting as well. After the administration of 1 mg IV Ativan and 2.5 mg IV droperidol he was feeling much better Departure - Departure Disposition: 01 Home, Self Care Clinical Impression: Anxiety attack Condition: Good Record reviewed to determine appropriate education?: Yes Instructions: ED Stress React Prescriptions: LORazepam [Ativan] 1 mg PO TID PRN #7 tablet PRN Reason: Anxiety Comments: . I sent your prescription electronically to the [facility] in [place]. Return if for new or worsening can symptoms, follow-up with your primary care physician, next available appointment. Forms: PCP List
[2023-03-03 17:48] VITALS: BP 151/77; O2SAT 99
== END 2023-03-03 17:44 | disposition home or self-care (01) ==
LOC: ED 15:35
DX: F41.0 Panic disorder [episodic paroxysmal anxiety] (principal); R11.10 Vomiting, unspecified; F17.200 Nicotine dependence, unspecified, uncomplicated
CPT/HCPCS: 93005; 96374; 96375; 99284; J2060

== ENCOUNTER 2023-03-27 12:55 | Emergency (ER) | payer MEDICAID ==
[2023-03-27 13:25] VITALS: BP 139/82; O2SAT 96
--- NOTE | 2023-03-27 13:35 | XRAY Report ---
PROCEDURE: Ankle 3 View RT INDICATIONS: Trauma TECHNIQUE: 3 views of the ankle were acquired. COMPARISON: None. FINDINGS: Bones: No fractures or dislocations. Well-defined cortically based small exostosis arising from the dorsal anterior talar neck. Ankle mortise is normally aligned on nonweightbearing view. No suspiciou s bony lesions. Soft tissues: No tibiotalar joint effusion. Achilles tendon appears normal. Mild soft tissue swell ing about the ankle. IMPRESSION: 1.No acute bony abnormality. 2.Small exostosis of the dorsal talar neck. Reviewed by: Sommer Montero MD on 03/27/2023 1:34 PM PST Approved by: Sommer Montero MD on 03/27/2023 1:34 PM PST Station ID: [id number]
--- NOTE | 2023-03-27 13:50 | ED Physician Documentation ---
PD HPI LOWER EXT INJURY - Stated complaint Stated Complaint: RT ANKLE INJ - Chief complaint Chief Complaint: Trauma Ext - History obtained from History obtained from: Patient - Additional information Additional information: Patient is a 32-year-old male presenting for evaluation of right ankle injury. He reports he stepped into a divot and rolled his ankle this morning. No head injury or LOC. Denies injuries elsewhere. Pain with ambulation. Review of Systems Musculoskeletal: reports: Extremity swelling Neurologic: denies: Head injury PD PAST MEDICAL HISTORY - Past Medical History Past Medical History: Yes Cardiovascular: None Respiratory: None, Sleep apnea Neuro: None Endocrine/Autoimmune: None GI: None : None HEENT: None Psych: Depression, Anxiety, Bipolar disorder Musculoskeletal: None Derm: None - Past Surgical History Past Surgical History: Yes HEENT: Tonsil/Adenoidectomy - Present Medications Home Medications: Ambulatory Orders Medication Instructions Recorded Confirmed Paliperidone Palmitate [Invega See Rx Instructions .ROUTE .COMPLEX 06/08/22 06/08/22 Trinza] Diclofenac Sodium 1% Gel [Voltaren 2 gm TOP QID 7 Days #1 each 11/20/22 Gel] methocarbamoL [Robaxin] 500 mg PO Q6H #20 tablet 11/20/22 LORazepam [Ativan] 1 mg PO TID PRN #7 tablet 03/03/23 - Allergies Allergies/Adverse Reactions: Allergies Allergy/AdvReac Type Severity Reaction Status Date / Time No Known Drug Allergies Allergy Verified 03/27/23 13:11 - Social History Does the pt smoke?: Yes Smoking Status: Current every day smoker Does the pt drink ETOH?: No Does the pt have substance abuse?: Yes Substance Use and Type: Marijuana - Immunizations Immunizations are current?: Yes Immunizations: TDAP current <10years, Other immun not current - POLST Patient has POLST: No PD ED PE NORMAL - General General: Alert and oriented X 3, No acute distress, Well developed/nourished - HEENT HEENT: Atraumatic, Moist mucous membranes - Cardiac Cardiac: Strong equal pulses - Respiratory Respiratory: No respiratory distress - Extremities Extremities: Other (Swelling and tenderness to lateral right ankle, distal pulses intact, pain with range of motion, no tenderness more proximally in lower extremity, no tenderness over foot, no open wounds) Results - Vitals Vitals: Vital Signs - 24 hr 03/27/23 13:08 Temperature 36.7 C Heart Rate 85 Respiratory 18 Rate Blood Pressure 139/82 H O2 Saturation 96 Oxygen O2 Source Room air PD Medical Decision Making - ED course Complexity details: reviewed results, re-evaluated patient, d/w patient ED course: Patient with right ankle injury. X-ray was obtained and reviewed and I see no fracture or dislocation. Discussed continued supportive care for likely ankle sprain. Patient was given an Aircast as well as crutches. Understands need for close follow-up if symptoms or not improving as well as concerning symptoms to return for. Departure - Departure Disposition: 01 Home, Self Care Clinical Impression: Right ankle injury Condition: Stable Instructions: ED Sprain Ankle Comments: Your x-ray does not show a broken or out of place bone in regards to your ankle. You likely have a sprain. We have given you an Aircast as well as crutches. Continue with ice, anti-inflammatory such as acetaminophen or ibuprofen, elevation and close follow-up with your primary care if symptoms or not improving over the course of the next week. Forms: PCP List Discharge Date/Time: 03/27/23 13:59
== END 2023-03-27 13:59 | disposition home or self-care (01) ==
LOC: ED 12:55
DX: S99.911A Unspecified injury of right ankle, initial encounter (principal); X50.1XXA Overexertion from prolonged static or awkward postures, initial encounter; Y93.89 Activity, other specified; F17.200 Nicotine dependence, unspecified, uncomplicated
CPT/HCPCS: 99283

== ENCOUNTER 2023-09-04 08:20 | Outpatient (CLI) | payer MEDICAID ==
[2023-09-04 09:12] LABS: CHOL/HDL RATIO 4.1 (<5.0); CHOLESTEROL 151 mg/dL; HDL CHOLESTEROL 37 mg/dL; LDL CHOLESTEROL,CALCULATED 94 mg/dL; LDL/HDL RATIO 2.5 (<3.6); TRIGLYCERIDES 100 mg/dL (48-352); VLDL CHOLESTEROL 20 mg/dL
[2023-09-04 09:28] LABS: PROLACTIN 27.15 ng/mL
[2023-09-04 20:23] LABS: ESTIMATED AVERAGE GLUCOSE 128 mg/dL (70-100); HEMOGLOBIN A1c% 6.1 % (4.27-6.07)
== END 2023-09-04 08:21 | disposition home or self-care (01) ==
LOC: LAB 08:20
PROVIDERS: ATTEND Nurse Practitioner Psychiatric/Mental Health
DX: F90.0 Attention-deficit hyperactivity disorder, predominantly inattentive type (principal); F31.74 Bipolar disorder, in full remission, most recent episode manic; Z79.899 Other long term (current) drug therapy
CPT/HCPCS: 36415; 80061; 83036; 83721; 84146

== ENCOUNTER 2023-10-23 00:52 | Emergency (ER) | payer MEDICAID ==
[2023-10-23 01:21] VITALS: BP 146/77
[2023-10-23] MEDS: PROPARACAINE 0.5% OPHTH DROPS 15 ML RIGHTEYE STA (01:38)
--- NOTE | 2023-10-23 02:13 | ED Physician Documentation ---
PD HPI OPHTHO - Stated complaint Stated Complaint: RT EYE PX - Chief complaint Chief Complaint: Heent - History obtained from History obtained from: Patient - Additional information Additional information: HPI from patient. Patient c/o right eye pain, sudden onset at approximately 12:30 PM yesterday ( 10/22/23) when he was struck by a small rock that had been caught up in a weed eater he was using. The pain was initially mild but gradually worsening since the injury. Describes FB sensation and "sandpaper" (per patient) sensation of the eye that is exacerbated when he blinks. Denies visual changes. Does not wear contact lenses but does wear corrective glasses (was not wearing at the time of the injury). Presents due to unable to sleep secondary to the right eye pain and FB sensation PD PAST MEDICAL HISTORY - Past Medical History Past Medical History: Yes Cardiovascular: None Respiratory: None, Sleep apnea Neuro: None Endocrine/Autoimmune: None GI: None : None HEENT: None Psych: Depression, Anxiety, Bipolar disorder Musculoskeletal: None Derm: None - Past Surgical History Past Surgical History: Yes HEENT: Tonsil/Adenoidectomy - Present Medications Home Medications: Ambulatory Orders Medication Instructions Recorded Confirmed Paliperidone Palmitate [Invega See Rx Instructions .ROUTE .COMPLEX 06/08/22 06/08/22 Trinza] Diclofenac Sodium 1% Gel [Voltaren 2 gm TOP QID 7 Days #1 each 11/20/22 Gel] methocarbamoL [Robaxin] 500 mg PO Q6H #20 tablet 11/20/22 LORazepam [Ativan] 1 mg PO TID PRN #7 tablet 03/03/23 HYDROcod/ACETAM 5/325 [Aspen 5/325] 1 - 2 tablet PO Q6H PRN #14 tablet 10/23/23 - Allergies Allergies/Adverse Reactions: Allergies Allergy/AdvReac Type Severity Reaction Status Date / Time No Known Drug Allergies Allergy Verified 03/27/23 13:11 - Social History Does the pt smoke?: Yes Smoking Status: Current every day smoker Does the pt drink ETOH?: No Does the pt have substance abuse?: Yes - Immunizations Immunizations are current?: Yes Immunizations: TDAP current <10years, Other immun not current - POLST Patient has POLST: No PD ED PE NORMAL - Vitals Vital signs reviewed: Yes - General General: Alert and oriented X 3, No acute distress, Well developed/nourished PD ED PE EXPANDED - HEENT HEENT Visual: 1 - deformity (fluorescene uptake) - Eyes Eyes: PERRL, Fluorescein uptake, Anterior chambers clear Results - Vitals Vitals: Vital Signs - 24 hr 10/23/23 10/23/23 01:09 02:52 Temperature 36.3 C L Heart Rate 100 65 Respiratory 18 15 Rate Blood Pressure 146/77 H O2 Saturation 98 99 Oxygen O2 Source Room air PD Medical Decision Making - ED course Complexity details: considered differential, d/w patient ED course: right eye corneal abrasion , punctate and without evidence of complication. He is given 2 tablets vicodin PO prior to d/c; he had complete resolution of symptoms after instillation of 1 drop proparacaine to right eye but this is expected to wear off within the hour and thus given the vicodin. Also given one drop polytrim (ophthalmic) right eye with bottle to take home and instructions on use (1 drop right eye TID x 5 days). E-prescribed vicodin to his pharmacy of choice. Diagnosis, prognosis, and return precautions reviewed with patient. Departure - Departure Disposition: 01 Home, Self Care Clinical Impression: Corneal abrasion, right Condition: Good Instructions: ED Eye Injury Corneal Abrasion Prescriptions: HYDROcod/ACETAM 5/325 [Aspen 5/325] 1 - 2 tablet PO Q6H PRN #14 tablet PRN Reason: Pain Comments: I was able to visualize a small abrasion of your right cornea. This certainly correlates with the symptoms you have been describing (eye irritation, foreign body sensation). You are being provided with antibiotic drops. Use the antibiotic drops as follows: 1 drop in right eye 3 times per day for 5 days. This is to prevent an infection. I have electronically submitted a prescription for Vicodin (narcotic/opiate pain medication) to the [facility] pharmacy in [place]. If your pain is not improving in the next 48 hours, and/or the pain has not resolved after 5 days, follow-up with your primary care provider. I am prescribing a short course of narcotic pain medication for you. These are potentially dangerous and addictive medications that should be used carefully. These medications may constipate you. Take an ieag-qet-nvfyxnw stool softener (docusate) twice daily with plenty of water while taking these medications. If you go 24 hours without a bowel movement, take ioub-lye-wvbqmht miralax, per package instructions. Do not drink or drive while taking these medications. If you received narcotic or sedating medications while in the emergency department, do not drive for 24 hours. Store this medication in a safe, secure place and out of reach of children. It is a violation of federal law to give or sell this medication to another person or to use in a manner other than prescribed. The ED will not refill narcotic prescriptions, including prescriptions lost or stolen. To dispose of unwanted medications: 1. [facility] at [address] in [place] has a medication drop box. They accept prescription medications (in pill form) Tuesday through Tuesday 9:00 a.m. to 5:00 p.m. 2. The [facility] [place] [employer] accepts prescription medications (in pill form only) for disposal year round. Call for more information. 3. Contact the [facility] for the next [facility] sponsored prescription drug collection event. , [phone], or [phone]; Discharge Date/Time: 10/23/23 02:52
[2023-10-23] MEDS: HYDROcod/ACETAM 5/325 MG TABLET PO STA (02:49)
[2023-10-23 02:54] VITALS: O2SAT 99
== END 2023-10-23 02:52 | disposition home or self-care (01) ==
LOC: ED 00:52
DX: S05.01XA Injury of conjunctiva and corneal abrasion without foreign body, right eye, initial encounter (principal); W20.8XXA Other cause of strike by thrown, projected or falling object, initial encounter; Y93.H9 Activity, other involving exterior property and land maintenance, building and construction; G47.30 Sleep apnea, unspecified; F17.200 Nicotine dependence, unspecified, uncomplicated
CPT/HCPCS: 99283; A9270; J3490

== ENCOUNTER 2024-01-10 00:44 | Emergency (ER) | payer MEDICAID ==
[2024-01-10 01:17] VITALS: O2SAT 98
--- NOTE | 2024-01-10 01:21 | ED Physician Documentation ---
PD HPI HEENT - Stated complaint Stated Complaint: L EAR PX - Chief complaint Chief Complaint: Heent - History obtained from History obtained from: Patient - History of Present Illness Timing - onset: Yesterday Timing - details: Abrupt onset, Still present (onset of left ear pain and feeling pressure/congestion, with marked increase today. No URI symptoms otherwise.) Location: Left ear Worsens: Swalllowing, Position Associated symptoms: Congestion. No: Fever, Swollen nodes Review of Systems Constitutional: denies: Fever, Chills Ears: reports: Ear pain. denies: Drainage/discharge PD PAST MEDICAL HISTORY - Past Medical History Cardiovascular: None Respiratory: None, Sleep apnea Neuro: None Endocrine/Autoimmune: None GI: None : None HEENT: None Psych: Depression, Anxiety, Bipolar disorder Musculoskeletal: None Derm: None - Past Surgical History Past Surgical History: Yes HEENT: Tonsil/Adenoidectomy - Present Medications Home Medications: Ambulatory Orders Medication Instructions Recorded Confirmed Paliperidone Palmitate [Invega See Rx Instructions .ROUTE .COMPLEX 06/08/22 06/08/22 Trinza] Diclofenac Sodium 1% Gel [Voltaren 2 gm TOP QID 7 Days #1 each 11/20/22 Gel] methocarbamoL [Robaxin] 500 mg PO Q6H #20 tablet 11/20/22 LORazepam [Ativan] 1 mg PO TID PRN #7 tablet 03/03/23 HYDROcod/ACETAM 5/325 [Columbus 5/325] 1 - 2 tablet PO Q6H PRN #14 tablet 10/23/23 Amox/Clav 875/125 [Augmentin] 1 each PO Q12H #14 tablet 01/10/24 Ciproflox/Dexameth Otic Drops 4 drops OT BID #7.5 ml 01/10/24 [Ciprodex Otic Drops] HYDROcod/ACETAM 5/325 [Columbus 5/325] 1 ea PO Q6H PRN #12 tablet 01/10/24 - Allergies Allergies/Adverse Reactions: Allergies Allergy/AdvReac Type Severity Reaction Status Date / Time No Known Drug Allergies Allergy Verified 01/10/24 01:01 - Social History Does the pt smoke?: Yes Smoking Status: Current every day smoker Does the pt drink ETOH?: No Does the pt have substance abuse?: Yes - Immunizations Immunizations are current?: Yes Immunizations: TDAP current <10years, Other immun not current - POLST Patient has POLST: No PD ED PE NORMAL - Vitals Vital signs reviewed: Yes - General General: Alert and oriented X 3, No acute distress, Well developed/nourished - HEENT HEENT: Moist mucous membranes, Pharynx benign. No: Ears normal (right ear is normal. LEft canal with redness and inflammation, mild white exudate. The TM however is very markedly red as well with some fluid pressure behind. ) - Neck Neck: Supple, no meningeal sign, No adenopathy - Derm Derm: Normal color, Warm and dry Results - Vitals Vitals: Vital Signs - 24 hr 01/10/24 01/10/24 01:01 02:26 Temperature 36.8 C 37 C Heart Rate 88 88 Respiratory 16 16 Rate Blood Pressure 154/68 H 122/68 O2 Saturation 98 98 Oxygen O2 Source Room air PD Medical Decision Making - ED course Complexity details: considered differential (appears OE but also notable OM find ings so will do oral and topical.), d/w patient Departure - Departure Disposition: 01 Home, Self Care Clinical Impression: Otitis media, Otitis externa Condition: Stable Record reviewed to determine appropriate education?: Yes Instructions: ED Otitis Media Acute Adult, ED Otitis Externa Prescriptions: Amox/Clav 875/125 [Augmentin] 1 each PO Q12H #14 tablet Ciproflox/Dexameth Otic Drops [Ciprodex Otic Drops] 4 drops OT BID #7.5 ml HYDROcod/ACETAM 5/325 [Columbus 5/325] 1 ea PO Q6H PRN #12 tablet PRN Reason: Pain Comments: Your ear canal is red and inflamed consistent with "swimmer's ear" (otitis externa). However the eardrum itself is quite red and inflamed and your symptoms of feeling blocked and such would be consistent with infection into the middle ear as well. For this we would do both an oral antibiotic as well as the topical for the ear canal. Stay well-hydrated. Tylenol ibuprofen if needed for pains. Add hydrocodone every 4-6 hours if needed for worse pains. I would anticipate improvement over the next several days and resolved by 3 to 5 days. I sent your prescriptions to [facility] pharmacy. I am prescribing a short course of narcotic pain medication for you. These are potentially dangerous and addictive medications that should be used carefully. These medications may constipate you. Take an yhdt-myz-tocggae stool softener such as docusate twice daily with plenty of water while taking these medications. If you go 24 hours without a bowel movement, take bsmw-mou-argggiw MiraLAX, per package instructions. Do not drink or drive while taking these medications. If you received narcotic or sedating medications while in the emergency department do not drive for 24 hours. Store this medication in a safe, secure place and out of reach of children. It is a violation of federal law to give or sell this medication to another person or to use in a manner other than prescribed. The ED will not refill narcotic prescriptions, including prescriptions lost or stolen. You can dispose of unwanted medications at the [facility]'s office or at several pharmacies such as [facility]. Forms: PCP List Discharge Date/Time: 01/10/24 02:26
[2024-01-10] MEDS: IBUPROFEN 600 MG TABLET PO STA (02:15)
[2024-01-10] MEDS: AMOXICILLIN 250 MG CAPSULE PO STA (02:15)
[2024-01-10] MEDS: NEOMYCIN/POLYMYX/HC OTIC DROPS LEFTEAR STA (02:15)
[2024-01-10] MEDS: HYDROcod/ACETAM 5/325 MG TABLET PO STA (02:15)
[2024-01-10 02:34] VITALS: BP 122/68
--- NOTE | 2024-01-10 08:00 | ED Physician Documentation ---
ED Addendum - Addendum Addendum: 01/10/24 08:00 Fax from [facility], Cortisporin is not covered by his insurance so substituted Ciprodex and e-prescribed to pharmacy.
== END 2024-01-10 02:26 | disposition home or self-care (01) ==
LOC: ED 00:44
DX: H66.91 Otitis media, unspecified, right ear (principal); H60.501 Unspecified acute noninfective otitis externa, right ear; G47.30 Sleep apnea, unspecified; F17.200 Nicotine dependence, unspecified, uncomplicated
CPT/HCPCS: 99283; A9270